=== PATIENT | female | born 1995 | race African-American/Black ===

== ENCOUNTER 2016-08-12 16:50 | Emergency (ER) | payer MEDICAID ==
[2016-08-12 18:18] LABS: ABSOLUTE LYMPHOCYTES (AUTO) 0.9 10^3/uL (0.5-4.7); ABSOLUTE MONOCYTES (AUTO) 0.7 10^3/uL (0.1-1.4); ABSOLUTE NEUT (AUTO) 3.2 10^3/uL (1.7-8.2); BASOPHILS % (AUTO) 0.6 % (0-2); EOSINOPHILS % (AUTO) 0.3 % (0-6); HEMATOCRIT 34.5 % (36.0-47.0); HEMOGLOBIN 11.1 g/dL (12.0-15.5); HGB HCT DIFFERENCE -1.2; MEAN CORPUSCULAR HEMOGLOBIN 25.3 pg (27.0-33.4); MEAN CORPUSCULAR HGB CONC 32.1 g/dL (32.0-36.0); MEAN CORPUSCULAR VOLUME 79 fl (80-97); MONOCYTES % (AUTO) 14.7 % (3-13); RED BLOOD COUNT 4.38 10^6/uL (3.72-5.28); RED CELL DISTRIBUTION WIDTH 14.3 % (11.5-14.0); SEGMENTED NEUTROPHILS % (AUTO) 65.4 % (42-78)
[2016-08-12 18:39] LABS: ALANINE AMINOTRANSFERASE 21 U/L (9-52); ALBUMIN 3.9 g/dL (3.5-5.0); ALKALINE PHOSPHATASE 111 U/L (38-126); ANION GAP 12 (5-19); ASPARTATE AMINO TRANSFERASE 18 U/L (14-36); BILIRUBIN,DIRECT 0.2 mg/dL (0.0-0.4); BILIRUBIN,TOTAL 0.8 mg/dL (0.2-1.3); BLOOD UREA NITROGEN 4 mg/dL (7-20); CALCIUM 9.5 mg/dL (8.4-10.2); CARBON DIOXIDE 23 mmol/L (22-30); CHLORIDE 105 mmol/L (98-107); CREATININE RESULT 0.62 mg/dL (0.52-1.25); GLUCOSE 100 mg/dL (75-110); POTASSIUM 4.1 mmol/L (3.6-5.0); SODIUM 140.4 mmol/L (137-145); TOTAL PROTEIN 7.5 g/dL (6.3-8.2)
[2016-08-12 18:40] LABS: ALCOHOL < 10 mg/dL (NONE DETECTED)
[2016-08-12 18:56] LABS: APPEARANCE,URINE SLIGHTLY-CLOUDY; BILIRUBIN,URINE NEGATIVE (NEGATIVE); GLUCOSE, URINE NEGATIVE (NEGATIVE); KETONES,URINE NEGATIVE (NEGATIVE); LEUKOCYTE ESTERASE,URINE TRACE (NEGATIVE); NITRITE,URINE NEGATIVE (NEGATIVE); PROTEIN,URINE 100 mg/dL (NEGATIVE); URINE SPECIFIC GRAVITY 1.016; UROBILINOGEN,URINE NEGATIVE mg/dL (<2.0)
--- NOTE | 2016-08-12 18:57 | ER Document Report ---
ED Seizure - General Chief Complaint: Seizure Stated Complaint: SEIZURES Time seen by provider: 18:55 Mode of Arrival: Medic Information source: Patient Notes: This is a 21-year-old female that is brought to the ER by EMS after 2 seizures at home. The patient states she was listening to music and "fell out". The patient states the next thing she knew EMS was waking her up at the scene. Patient does state she bit her tongue. Patient denies any urinary incontinence. Patient denies any confusion. EMS reports that the patient was alert and oriented 3. Patient has had 2 EEGs in the past which were normal. Brain MRI and 03/04 was normal. Past medical history: ADHD, bipolar affective disorder, "seizures". Medicines: Adderall and Latuda No known drug allergies - HPI Patient complains to provider of: History of seizures Quality of pain: No pain Severity: None Pain Level: Denies Continued on arrival to ED: No Can details of seizure be obtained/verified: No Episode witnessed (by whom): No Current seizure medications: No: Carbamazepine, Gabatin, Keppra, Lamictal, Phenytoin, Phenobarbital, Trileptal, Valproic acid, Vimpat, Other Preceding symptoms/context: denies: Recent illness/fever, Recent alcohol intake , Recent drug use, Sleep deprivation, Missed dose of meds, Changed meds or dosage, Somnolence History of: denies: Brain tumor or mets, CVA, Hydrocephalus, Migraines, TBI, V/ P shunt, Other Character of seizure: Complete loss/conscious Post-ictal symptoms: None Injuries: Bit tongue Treatment [employer]ER: No: Advanced airway, Ativan, Valium, Other Associated Symptoms: None - Related Data Allergies/Adverse Reactions: No Known Allergies Allergy (Verified 08/12/16 17:01) Past Medical History - General Information source: Patient - Social History Smoking Status: Never Smoker Cigarette use (# per day): No Chew tobacco use (# tins/day): No Frequency of alcohol use: None Drug Abuse: None Family History: Reviewed & Not Pertinent - Past Medical History Cardiac Medical History: Reports: None Pulmonary Medical History: Reports: None EENT Medical History: Reports: None Neurological Medical History: Reports: Hx Seizures Endocrine Medical History: Reports: None Renal/ Medical History: Reports: None. Denies: Hx Peritoneal Dialysis Malignancy Medical History: Reports: None GI Medical History: Reports: None Musculoskeltal Medical History: Reports None Psychiatric Medical History: Reports: Hx Attention Deficit Hyperactivity Disorder, Hx Bipolar Disorder Traumatic Medical History: Reports: None Infectious Medical History: Reports: None Surgical Hx: Negative - Immunizations Immunizations up to date: Yes Hx Diphtheria, Pertussis, Tetanus Vaccination: Yes Review of Systems - Review of Systems Constitutional: denies: Chills, Fever EENT: No symptoms reported Cardiovascular: No symptoms reported Respiratory: No symptoms reported Gastrointestinal: No symptoms reported Genitourinary: No symptoms reported Female Genitourinary: No symptoms reported Musculoskeletal: No symptoms reported Skin: No symptoms reported Hematologic/Lymphatic: No symptoms reported Neurological/Psychological: See HPI Physical Exam - Vital signs Vitals: Temp Pulse Resp BP Pulse Ox 99.1 F 119 H 16 141/77 H 98 08/12/16 16:58 08/12/16 16:58 08/12/16 16:58 08/12/16 16:58 08/12/16 16:58 Notes: Physical exam: GENERAL: 21-year-old female, alert and oriented 3, no acute distress HEAD: Atraumatic, normocephalic. EYES: Pupils equal round and reactive to light, extraocular movements intact, sclera anicteric, conjunctiva are normal. ENT: TMs normal, nares patent, superficial tongue bites on the left side of the tongue. Oropharynx clear without exudates. Moist mucous membranes. NECK: Normal range of motion, supple without lymphadenopathy or JVD. LUNGS: Breath sounds clear to auscultation bilaterally and equal. No wheezes rales or rhonchi. HEART: Regular rate and rhythm without murmurs, rubs or gallops. ABDOMEN: Soft, normoactive bowel sounds. No tenderness to palpation. No guarding, no rebound. No masses appreciated. EXTREMITIES: Normal range of motion, no pitting or edema. No clubbing or cyanosis. NEUROLOGICAL: Cranial nerves II through XII grossly intact. Normal speech, motor 5 over 5, sensory grossly intact, cerebellar (finger to nose) good. PSYCH: Normal mood, normal affect. SKIN: Warm, Dry, normal turgor, no rashes or lesions noted. Course - Vital Signs Vital signs: Temp Pulse Resp BP Pulse Ox 98.5 F 104 H 16 140/95 H 98 08/12/16 19:41 08/12/16 22:30 08/12/16 22:30 08/12/16 22:30 08/12/16 22:30 - Laboratory Result Diagrams: 08/12/16 18:04 08/12/16 18:04 Laboratory results interpreted by me: 08/12/16 08/12/16 08/12/16 18:04 18:04 18:25 Hgb 11.1 L Hct 34.5 L MCV 79 L MCH 25.3 L RDW 14.3 H Monocytes % 14.7 H BUN 4 L Urine Protein 100 H Urine Blood SMALL H Ur Leukocyte Esterase TRACE H - EKG Interpretation by Me Rate: Normal Rhythm: NSR - EKG shows sinus tachycardia with a ventricular rate of 107. QTC is normal, QRS intervals is normal, no acute ST-T wave changes Discharge - Discharge Clinical Impression: seizure UTI (urinary tract infection) Qualifiers: Urinary tract infection type: acute cystitis Hematuria presence: without hematuria Qualified Code(s): N30.00 - Acute cystitis without hematuria Condition: Stable Disposition: HOME, SELF-CARE Instructions: Nitrofurantoin ([facility]) Additional Instructions: Note: Your labs look good. He may have a urine infection: Side did write for some antibiotics for the next few days. Recommendations: Continue current medicines. Take the antibiotics as prescribed Follow-up with your primary care doctor Return to the emergency room for any problems. Follow-up with Dr. Mejia tomorrow Give the neurologist: Return to the emergency room for any problems. Prescriptions: Nitrofurantoin Macrocrystal [Nitrofurantoin] 100 mg PO BID #6 capsule Referrals: OLI MEJIA DO [NO LOCAL MD] - Follow up in 3-5 days LUIS HOBBS MD [ACTIVE STAFF] - Follow up as needed (This is the number for the neurologist)
[2016-08-12 19:04] LABS: URINE BARBITURATES SCREEN NEGATIVE; URINE METHADONE SCREEN NEGATIVE; URINE OPIATES LOW NEGATIVE; URINE PHENCYCLIDINE SCREEN NEGATIVE
[2016-08-12 19:56] LABS: THYROID STIMULATING HORMONE 1.86 uIU/mL (0.47-4.68)
--- NOTE | 2016-08-12 21:40 | EKG REPORT ---
SEVERITY:- OTHERWISE NORMAL ECG - SINUS TACHYCARDIA BORDERLINE RIGHT AXIS DEVIATION : Confirmed by: Helena Cadena 12-Aug-2016 21:39:41
[2016-08-12] MEDS ORDERED: NITROFURANTOIN MONOHYD/M-CRYST 100 MG CAPSULE PO ONE (21:58)
[2016-08-12 22:53] VITALS: BP 140/95
== END 2016-08-12 22:35 | disposition home or self-care (01) ==
LOC: ER 16:50
DX: R56.9 Unspecified convulsions (principal); N30.00 Acute cystitis without hematuria
CPT/HCPCS: 93005; 99284; 36415; 84439; 80307 ×2; 83735; 84443; 84703; 85025; 80053; 81001; 93010; J3490; J8499

== ENCOUNTER 2016-09-09 19:45 | Emergency (ER) | payer MEDICAID ==
[2016-09-09] MEDS ORDERED: LEVETIRACETAM 1000 MG/NACL-ISO 100 ML IV ONE (20:54)
[2016-09-09 20:55] LABS: ABSOLUTE EOSINOPHILS # (AUTO) 0.1 10^3/uL (0.0-0.6); ABSOLUTE LYMPHOCYTES (AUTO) 1.9 10^3/uL (0.5-4.7); ABSOLUTE MONOCYTES (AUTO) 0.8 10^3/uL (0.1-1.4); ABSOLUTE NEUT (AUTO) 3.6 10^3/uL (1.7-8.2); BASOPHILS % (AUTO) 0.4 % (0-2); EOSINOPHILS % (AUTO) 0.9 % (0-6); HEMATOCRIT 33.3 % (36.0-47.0); HEMOGLOBIN 10.4 g/dL (12.0-15.5); HGB HCT DIFFERENCE -2.1; LYMPHOCYTES % (AUTO) 30.2 % (13-45); MEAN CORPUSCULAR HEMOGLOBIN 24.6 pg (27.0-33.4); MEAN CORPUSCULAR HGB CONC 31.4 g/dL (32.0-36.0); MEAN CORPUSCULAR VOLUME 78 fl (80-97); MONOCYTES % (AUTO) 12.1 % (3-13); RED BLOOD COUNT 4.24 10^6/uL (3.72-5.28); RED CELL DISTRIBUTION WIDTH 14.6 % (11.5-14.0); SEGMENTED NEUTROPHILS % (AUTO) 56.4 % (42-78); WHITE BLOOD COUNT 6.3 10^3/uL (4.0-10.5)
[2016-09-09] MEDS ORDERED: NORMAL SALINE 1000 ML 1,000 ML IV PRN (20:56)
--- NOTE | 2016-09-09 20:56 | ER Document Report ---
ED Seizure - General Chief Complaint: Seizure Stated Complaint: POSSIBLE SEIZURE Time Seen by Provider: 09/09/16 20:46 Mode of Arrival: Ambulatory Information source: Patient - HPI Patient complains to provider of: History of seizures Quality of pain: No pain Character of seizure: Complete loss/conscious, Generalized shaking Post-ictal symptoms: None Injuries: None Associated Symptoms: None Notes: Patient is a 21-year-old female with a history of seizures, who is not currently medicated, has not been seen by a neurologist recently, who presents to the emergency room via EMS after having a seizure, she states she was sitting down at the time and denies any pain or trauma from the seizure, at time of my evaluation she reports feeling 100% normal, she is agreeable to being medicated for seizures, states she is just not had time to follow-up with a neurologist for her seizures - Related Data Allergies/Adverse Reactions: No Known Allergies Allergy (Verified 08/12/16 17:01) Past Medical History - General Information source: Patient - Social History Smoking Status: Never Smoker Family History: Reviewed & Not Pertinent Neurological Medical History: Reports: Hx Seizures Renal/ Medical History: Denies: Hx Peritoneal Dialysis Psychiatric Medical History: Reports: Hx Attention Deficit Hyperactivity Disorder, Hx Bipolar Disorder - Immunizations Immunizations up to date: Yes Hx Diphtheria, Pertussis, Tetanus Vaccination: Yes Review of Systems - Review of Systems Constitutional: No symptoms reported EENT: No symptoms reported Cardiovascular: No symptoms reported Respiratory: No symptoms reported Gastrointestinal: No symptoms reported Genitourinary: No symptoms reported Female Genitourinary: No symptoms reported Musculoskeletal: No symptoms reported Skin: No symptoms reported Hematologic/Lymphatic: No symptoms reported Neurological/Psychological: Seizure -: Yes All other systems reviewed and negative Physical Exam - Vital signs Vitals: Resp Pulse Ox 23 H 100 09/09/16 20:13 09/09/16 20:13 Interpretation: Tachycardic - General General appearance: Appears well, Alert - HEENT Head: Normocephalic, Atraumatic Eyes: Normal Pupils: PERRL - Respiratory Respiratory status: No respiratory distress Chest status: Nontender Breath sounds: Normal Chest palpation: Normal - Cardiovascular Rhythm: Regular Heart sounds: Normal auscultation Murmur: No - Abdominal Inspection: Normal Distension: No distension Bowel sounds: Normal Tenderness: Nontender Organomegaly: No organomegaly - Back Back: Normal, Nontender - Extremities General upper extremity: Normal inspection, Nontender, Normal color, Normal ROM , Normal temperature General lower extremity: Normal inspection, Nontender, Normal color, Normal ROM , Normal temperature, Normal weight bearing. No: Felix's sign - Neurological Neuro grossly intact: Yes Cognition: Normal Orientation: AAOx4 [place] Coma Scale Eye Opening: Spontaneous [place] Coma Scale Verbal: Oriented [place] Coma Scale Motor: Obeys Commands [place] Coma Scale Total: 15 Speech: Normal Motor strength normal: LUE, RUE, LLE, RLE Sensory: Normal - Psychological Associated symptoms: Normal affect, Normal mood - Skin Skin Temperature: Warm Skin Moisture: Dry Skin Color: Normal Course - Re-evaluation Re-evalutation: 09/10/16 02:38 No seizure activity was observed while in the emergency room, patient had no complaints, lab studies were consistent with urinary tract infection and patient was started on antibiotics for this as well as antiseizure medication, she was provided with information for follow-up and advised to return if symptoms worsen, patient acknowledges understanding and agreement with this plan - Vital Signs Vital signs: Temp Pulse Resp BP Pulse Ox 98.8 F 112 H 25 H 132/83 H 100 09/09/16 20:16 09/09/16 20:16 09/09/16 23:00 09/09/16 21:01 09/09/16 23:00 - Laboratory Result Diagrams: 09/09/16 20:00 09/09/16 20:00 Laboratory results interpreted by me: 09/09/16 09/09/16 09/09/16 20:00 20:00 22:00 Hgb 10.4 L Hct 33.3 L MCV 78 L MCH 24.6 L MCHC 31.4 L RDW 14.6 H Carbon Dioxide 21 L BUN 2 L Glucose 112 H Urine Protein 100 H Urine Ketones TRACE H Urine Urobilinogen 2.0 H Ur Leukocyte Esterase MODERATE H Discharge - Discharge Clinical Impression: Seizure UTI (urinary tract infection) Qualifiers: Urinary tract infection type: site unspecified Hematuria presence: without hematuria Qualified Code(s): N39.0 - Urinary tract infection, site not specified Condition: Stable Disposition: HOME, SELF-CARE Instructions: Cephalexin ([facility]), Urinary Tract Infection ([facility]), Seizure, Known Epileptic ([facility]), Neurologist Additional Instructions: Follow up with your primary care provider and neurologist in one to 2 days. Return to the emergency room immediately if symptoms worsen or any additional concerns. Prescriptions: Cephalexin Monohydrate [Keflex 500 mg Capsule] 500 mg PO BID #20 capsule Levetiracetam [Keppra 500 mg Tablet] 500 mg PO Q12 #60 tablet
[2016-09-09 21:01] LABS: ALANINE AMINOTRANSFERASE 17 U/L (9-52); ALBUMIN 3.7 g/dL (3.5-5.0); ALKALINE PHOSPHATASE 79 U/L (38-126); ANION GAP 15 (5-19); ASPARTATE AMINO TRANSFERASE 18 U/L (14-36); BILIRUBIN,DIRECT 0.3 mg/dL (0.0-0.4); BILIRUBIN,TOTAL 0.7 mg/dL (0.2-1.3); BLOOD UREA NITROGEN 2 mg/dL (7-20); CALCIUM 9.2 mg/dL (8.4-10.2); CARBON DIOXIDE 21 mmol/L (22-30); CHLORIDE 106 mmol/L (98-107); GLUCOSE 112 mg/dL (75-110); MAGNESIUM 1.8 mg/dL (1.6-2.3); POTASSIUM 3.7 mmol/L (3.6-5.0)
[2016-09-09 21:03] LABS: ALCOHOL < 10 mg/dL (NONE DETECTED)
[2016-09-09 22:05] VITALS: BP 132/83
[2016-09-09 22:28] LABS: APPEARANCE,URINE SLIGHTLY-CLOUDY; BILIRUBIN,URINE NEGATIVE (NEGATIVE); GLUCOSE, URINE NEGATIVE (NEGATIVE); KETONES,URINE TRACE mg/dL (NEGATIVE); LEUKOCYTE ESTERASE,URINE MODERATE (NEGATIVE); NITRITE,URINE NEGATIVE (NEGATIVE); PROTEIN,URINE 100 mg/dL (NEGATIVE); URINE SPECIFIC GRAVITY 1.019
[2016-09-09 22:32] LABS: URINE BARBITURATES SCREEN NEGATIVE; URINE METHADONE SCREEN NEGATIVE; URINE OPIATES LOW NEGATIVE; URINE PHENCYCLIDINE SCREEN NEGATIVE
[2016-09-09] MEDS ORDERED: CEPHALEXIN 500 MG CAPSULE PO ONE (23:14)
== END 2016-09-09 23:55 | disposition home or self-care (01) ==
LOC: ER 19:45
DX: R56.9 Unspecified convulsions (principal); N39.0 Urinary tract infection, site not specified
CPT/HCPCS: 99284; 96361; 96365; 36415; 80307 ×2; 83735; 84703; 85025; 80053; 81001; J7030; J1953

== ENCOUNTER 2018-02-24 13:44 | Emergency (ER) | payer SELFPAY ==
[2018-02-24 14:16] LABS: ALANINE AMINOTRANSFERASE 8 U/L (9-52); ALKALINE PHOSPHATASE 99 U/L (38-126); ANION GAP 15 (5-19); ASPARTATE AMINO TRANSFERASE 28 U/L (14-36); BILIRUBIN,DIRECT 0.2 mg/dL (0.0-0.4); BILIRUBIN,TOTAL 0.6 mg/dL (0.2-1.3); BLOOD UREA NITROGEN 6 mg/dL (7-20); CALCIUM 9.5 mg/dL (8.4-10.2); CARBON DIOXIDE 21 mmol/L (22-30); CHLORIDE 107 mmol/L (98-107); GLUCOSE 104 mg/dL (75-110); POTASSIUM 3.9 mmol/L (3.6-5.0); SODIUM 143.2 mmol/L (137-145); TOTAL PROTEIN 7.9 g/dL (6.3-8.2)
[2018-02-24 14:18] LABS: ALCOHOL < 10 mg/dL (NONE DETECTED)
[2018-02-24 15:16] LABS: ABSOLUTE EOSINOPHILS # (AUTO) 0.1 10^3/uL (0.0-0.6); ABSOLUTE LYMPHOCYTES (AUTO) 1.9 10^3/uL (0.5-4.7); ABSOLUTE MONOCYTES (AUTO) 0.8 10^3/uL (0.1-1.4); ABSOLUTE NEUT (AUTO) 5.7 10^3/uL (1.7-8.2); BASOPHILS % (AUTO) 0.5 % (0-2); EOSINOPHILS % (AUTO) 0.8 % (0-6); HEMATOCRIT 34.8 % (36.0-47.0); HEMOGLOBIN 11.3 g/dL (12.0-15.5); LYMPHOCYTES % (AUTO) 22.3 % (13-45); MEAN CORPUSCULAR HEMOGLOBIN 26.6 pg (27.0-33.4); MEAN CORPUSCULAR HGB CONC 32.3 g/dL (32.0-36.0); MEAN CORPUSCULAR VOLUME 82 fl (80-97); MONOCYTES % (AUTO) 9.2 % (3-13); PLATELET COUNT 262 10^3/uL (150-450); RED BLOOD COUNT 4.23 10^6/uL (3.72-5.28); RED CELL DISTRIBUTION WIDTH 15.5 % (11.5-14.0); SEGMENTED NEUTROPHILS % (AUTO) 67.2 % (42-78); TOTAL CELLS COUNTED % (AUTO) 100 %; WHITE BLOOD COUNT 8.5 10^3/uL (4.0-10.5)
--- NOTE | 2018-02-24 15:16 | ER Document Report ---
ED General - General Mode of Arrival: Ambulatory Information source: Patient TRAVEL OUTSIDE OF THE [place] IN LAST 30 DAYS: No <LORRAINE LYNNE - Last Filed: 02/24/18 16:45> <REINALDO CARTAGENA - Last Filed: 02/24/18 18:21> - General Chief Complaint: Seizure Stated Complaint: POSSIBLE SEIZURE Time Seen by Provider: 02/24/18 14:48 Notes: Patient is a 22-year-old female with a history of epilepsy presents to the emergency department complaining of a seizure. Patient states that she had 3 [id number] seizures today and proceeded to call EMS. Patient states that normally she would have at most 2 seizures with her last seizure being in January. At bedside patient states that she is feels sleepy and weak. She also complains of bite guidry to the tongue and urine incontinence. Patient denies any chest pain, trouble breathing, nausea, vomiting, diarrhea or numbness or tingling sensations. Patient states that she used to be prescribed Keppra but has been unable to take her because her antiseizure medications due to not being able to afford them. She states that her last dose of Keppra was sometime in June. (LORRAINE LYNNE) - Related Data Allergies/Adverse Reactions: No Known Allergies Allergy (Verified 08/12/16 17:01) Past Medical History - General Information source: Patient - Social History Smoking Status: Current Every Day Smoker Chew tobacco use (# tins/day): No Frequency of alcohol use: None Drug Abuse: None Family History: Reviewed & Not Pertinent Patient has suicidal ideation: No Patient has homicidal ideation: No Neurological Medical History: Reports: Hx Seizures Psychiatric Medical History: Reports: Hx Attention Deficit Hyperactivity Disorder, Hx Bipolar Disorder - Immunizations Immunizations up to date: Yes Hx Diphtheria, Pertussis, Tetanus Vaccination: Yes <LORRAINE LYNNE - Last Filed: 02/24/18 16:45> Review of Systems - Review of Systems Constitutional: See HPI EENT: No symptoms reported Cardiovascular: No symptoms reported Respiratory: No symptoms reported Gastrointestinal: No symptoms reported Genitourinary: No symptoms reported Female Genitourinary: No symptoms reported Musculoskeletal: No symptoms reported Skin: No symptoms reported Hematologic/Lymphatic: No symptoms reported Neurological/Psychological: See HPI, Seizure -: Yes All other systems reviewed and negative <LORRAINE LYNNE - Last Filed: 02/24/18 16:45> Physical Exam <LORRAINE LYNNE - Last Filed: 02/24/18 16:45> <REINALDO CARTAGENA - Last Filed: 02/24/18 18:21> - Vital signs Vitals: Resp 35 H 02/24/18 13:50 - Notes Notes: GENERAL: Alert, interacts well. No acute distress. HEAD: Normocephalic, atraumatic. EYES: Pupils equal, round, and reactive to light. Extraocular movements intact. ENT: Oral mucosa moist, tongue midline. Abrasions to the right side of the tongue consistent with bite guidry. NECK: Full range of motion. Supple. Trachea midline. LUNGS: Clear to auscultation bilaterally, no wheezes, rales, or rhonchi. No respiratory distress. HEART: Regular rate and rhythm. No murmurs, gallops, or rubs. ABDOMEN: Soft, non-tender. Non-distended. Bowel sounds present in all 4 quadrants. EXTREMITIES: Moves all 4 extremities spontaneously. NEUROLOGICAL: Alert and oriented x3. Normal speech. Cranial nerves II through XII grossly intact. Biceps and patellar DTRs 2+ bilaterally. PSYCH: Normal affect, normal mood. SKIN: Warm, dry, normal turgor. No rashes or lesions noted. (LORRAINE LYNNE) Course - Laboratory Result Diagrams: 02/24/18 13:20 02/24/18 13:20 <LORRAINE LYNNE - Last Filed: 02/24/18 16:45> - Laboratory Result Diagrams: 02/24/18 13:20 02/24/18 13:20 <REINALDO CARTAGENA - Last Filed: 02/24/18 18:21> - Re-evaluation Re-evalutation: 02/24/18 17:02 CBC shows mild anemia with a hemoglobin 11.3, CMP decreased CO2 at 21, hCG is negative, urinalysis shows blood and ketones but she is on her period, urine drug screen shows marijuana but nothing else. Alfredo Ocampo the reservations manager did speak with the patient and gave her an application for the [facility]. I will write her a one-month supply of Keppra and she has been given a 1 g dose here. Patient will be discharged home and referred to Dr. Hobbs. No further investigation is necessary as she is neurologically intact and has a known history of seizures and has not taken any antiepileptics since June. ( REINALDO CARTAGENA) - Vital Signs Vital signs: Temp Pulse Resp BP Pulse Ox 98.4 F 26 H 128/59 H 95 02/24/18 13:59 02/24/18 17:11 02/24/18 17:11 02/24/18 17:11 - Laboratory Laboratory results interpreted by me: 02/24/18 02/24/18 02/24/18 13:20 13:20 15:43 Hgb 11.3 L Hct 34.8 L MCH 26.6 L RDW 15.5 H Carbon Dioxide 21 L BUN 6 L ALT 8 L Urine Protein 100 H Urine Ketones TRACE H Urine Blood LARGE H Urine Urobilinogen 4.0 H Ur Leukocyte Esterase TRACE H Discharge <LORRAINE LYNNE - Last Filed: 02/24/18 16:45> <REINALDO CARTAGENA - Last Filed: 02/24/18 18:21> - Discharge Clinical Impression: Seizure, Noncompliance with medication regimen Condition: Stable Disposition: HOME, SELF-CARE Additional Instructions: You will keep having seizures if you are not taking your seizure medications. I have written you a prescription for your Keppra. Please try to get this filled and take it as directed. We have given you an application for the [facility], this is a low cost clinic associated with the hospital. Please fill out this application to see if you qualify it. You may not drive, swim or take a bath without being supervised until you are cleared by a neurologist. Prescriptions: Levetiracetam [Keppra 500 mg Tablet] 500 mg PO Q12 #60 tablet Referrals: LUIS HOBBS MD [NO LOCAL MD] - Follow up as needed Scribe Attestation: 02/24/18 18:21 I personally performed the services described in the documentation, reviewed and edited the documentation which was dictated to the scribe in my presence, and it accurately records my words and actions. (REINALDO CARTAGENA) Scribe Documentation - Scribe Written by Scribe:: Cr Ashley, 02/24/2018 15:46 acting as scribe for DrJs:: Kristian <LORRAINE LYNNE - Last Filed: 02/24/18 16:45>
[2018-02-24] MEDS ORDERED: LEVETIRACETAM 1000 MG/NACL-ISO 1,000 MG/100 ML RTUPB IV ONE (15:25)
[2018-02-24] MEDS ORDERED: NORMAL SALINE 1000 ML 1,000 ML IV ONE (16:02)
[2018-02-24 16:08] LABS: APPEARANCE,URINE SLIGHTLY-CLOUDY; BILIRUBIN,URINE NEGATIVE (NEGATIVE); COLOR,URINE YELLOW; GLUCOSE, URINE NEGATIVE (NEGATIVE); KETONES,URINE TRACE mg/dL (NEGATIVE); LEUKOCYTE ESTERASE,URINE TRACE (NEGATIVE); NITRITE,URINE NEGATIVE (NEGATIVE); PROTEIN,URINE 100 mg/dL (NEGATIVE)
[2018-02-24 16:18] LABS: URINE AMPHETAMINES SCREEN NEGATIVE; URINE BARBITURATES SCREEN NEGATIVE; URINE BENZODIAZEPINES SCREEN NEGATIVE; URINE COCAINE SCREEN NEGATIVE; URINE MARIJUANA (THC) SCREEN UNCONFIRMED POSITIVE; URINE METHADONE SCREEN NEGATIVE; URINE PHENCYCLIDINE SCREEN NEGATIVE
[2018-02-24 17:44] VITALS: BP 128/59
--- NOTE | 2018-02-24 18:11 | EKG REPORT ---
SEVERITY:- NORMAL ECG - SINUS RHYTHM : Confirmed by: Edwardo Boudreaux MD 24-Feb-2018 18:11:18
== END 2018-02-24 17:30 | disposition home or self-care (01) ==
LOC: ER 13:44
DX: R56.9 Unspecified convulsions (principal); R53.1 Weakness; Z91.14 Patient's other noncompliance with medication regimen; Z79.899 Other long term (current) drug therapy; F17.200 Nicotine dependence, unspecified, uncomplicated
CPT/HCPCS: 93005; 99284; 96361; 96374; 36415; 82962; 80307 ×2; 83735; 84703; 85025; 80053; 81001; 93010; J7030; J1953

== ENCOUNTER 2018-05-17 22:44 | Emergency (ER) | payer SELFPAY ==
[2018-05-17] MEDS ORDERED: LEVETIRACETAM 1000 MG/NACL-ISO 1,000 MG/100 ML RTUPB IV ONE (23:28)
--- NOTE | 2018-05-17 23:33 | ER Document Report ---
ED General - General Chief Complaint: Seizure Stated Complaint: POSSIBLE SEIZURE Time Seen by Provider: 05/17/18 23:23 Notes: Patient is a 22-year-old female who presents with complaint of a seizure. She apparently possibly had 2 seizures at home today. Paramedics were called. No medications given in route. She currently is awake and alert and says she feels well and has no concerns or complaints. Patient does have a history of epilepsy . She supposed be on Keppra. She was last seen here in February. At that time she was seen by social work and given an appointment to the [facility]. She is also given a prescription for a month supply of Keppra. She says she never filled the prescription. She prefers to not remember if she ever followed up with [facility] to me in clinic and then later in our conversation said that she did remember going to there. She says that she think she has an upcoming appointment with them as well but is unsure. Patient denies any recent fevers. She denies any pain. She denies any recent changes in her health. She has no other complaints at this time. TRAVEL OUTSIDE OF THE [place] IN LAST 30 DAYS: No - Related Data Allergies/Adverse Reactions: No Known Allergies Allergy (Verified 08/12/16 17:01) Past Medical History - Social History Smoking Status: Current Some Day Smoker Chew tobacco use (# tins/day): No Frequency of alcohol use: None Drug Abuse: None Family History: Reviewed & Not Pertinent Patient has suicidal ideation: No Patient has homicidal ideation: No Neurological Medical History: Reports: Hx Seizures Renal/ Medical History: Denies: Hx Peritoneal Dialysis Psychiatric Medical History: Reports: Hx Attention Deficit Hyperactivity Disorder, Hx Bipolar Disorder - Immunizations Immunizations up to date: Yes Hx Diphtheria, Pertussis, Tetanus Vaccination: Yes Review of Systems - Review of Systems Notes: My Normal Review Basic REVIEW OF SYSTEMS: CONSTITUTIONAL : Denies fever, chills, or sweats. Denies recent illness. EENT: Denies eye, ear, throat, or mouth pain or symptoms. Denies nasal or sinus congestion. RESPIRATORY: Denies cough, cold, or chest congestion. Denies shortness of breath, difficulty breathing, or wheezing. GASTROINTESTINAL: Denies abdominal pain. Denies nausea, vomiting, or diarrhea. GENITOURINARY: Denies difficulty urinating, painful urination, burning, frequency, or blood in urine. FEMALE GENITOURINARY: Denies vaginal bleeding, abnormal or irregular periods. MUSCULOSKELETAL: Denies neck or back pain or joint pain or swelling. SKIN: Denies rash or skin lesions. NEUROLOGICAL: Had a seizure. Denies headache. Denies weakness or paralysis or loss of use of either side. Denies problems with gait or speech. Denies sensory or motor loss. ALL OTHER SYSTEMS REVIEWED AND NEGATIVE. Physical Exam - Vital signs Vitals: Temp Pulse Resp BP Pulse Ox 98.5 F 107 H 32 H 125/85 100 05/17/18 22:53 05/17/18 22:53 05/17/18 22:53 05/17/18 22:53 05/17/18 22:53 - Notes Notes: General Appearance: Well nourished, alert, cooperative, no acute distress, no obvious discomfort. Well-appearing. Vitals: reviewed, See vital signs table. Head: no swelling or tenderness to the head Eyes: PERRL, EOMI, Conjuctiva clear Mouth: Very small area of tongue biting along the right side of her tongue. No active bleeding. Throat: No tonsillar inflammation, No airway obstruction, No lymphadenopathy Neck: Supple, no neck tenderness, No thyromegaly Lungs: No wheezing, No rales, No rhonci, No accessory muscle use, good air exchange bilaterally. Heart: Normal rate, Regular rythm, No murmur, no rub Abdomen: Normal BS, soft, No rigidity, No abdominal tenderness, No guarding, no rebound, no abdominal masses, no organomegaly Extremities: strength 5/5 in all extremities, good pulses in all extremities, no swelling or tenderness in the extremities, no edema. Skin: warm, dry, appropriate color, no rash Neuro: speech clear, oriented x 3, normal affect, responds appropriately to questions. Cranial nerves II through XII are intact. Distal sensation intact. Patient moves all extremities without difficulty. No focal neurologic deficits on exam. Course - Re-evaluation Re-evalutation: 05/18/18 00:35 On reevaluation patient just received her Keppra. She is sleeping comfortably. Will monitor for a bit longer to make sure she does not have any further seizure activity. 05/18/18 02:12 Has continued to do well without any seizures. She is easily arousable and answers questions. I informed her that according to good Rx website [facility] has Her a month supply for $9. I informed her that she needs to get her prescription filled and start taking her medications. I did not obtain blood work as patient has not had any fevers or infections and has had no other symptoms to cause concern for other etiology behind her seizures other than her not taking her medication. Patient looks well and will be discharged home. She denies any injury or pain from the seizure. Dictation of this chart was performed using voice recognition software; therefore, there may be some unintended grammatical errors. - Vital Signs Vital signs: Temp Pulse Resp BP Pulse Ox 98.5 F 107 H 32 H 125/85 100 05/17/18 22:53 05/17/18 22:53 05/17/18 22:53 05/17/18 22:53 05/17/18 22:53 Discharge - Discharge Clinical Impression: Seizure Condition: Good Additional Instructions: Seizure, Known Epileptic You have had a seizure. Seizures may "break through" in an epileptic due to stress of infection or injury, a change in blood chemistry, or drug and alcohol use. Another common cause is failure to take medication as prescribed. Your doctor has evaluated your situation for the likely cause of this seizure. It is important that you follow his advice concerning any medication changes and follow-up care. Further testing of anti-seizure medication levels in your blood may be necessary. 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 This seizure must be reported to the catering truck driver's license bureau. Call the doctor or return if seizures recur, or if new or unusual symptoms arise -- such as severe headache, confusion, excessive sleepiness, local weakness or numbness, neck stiffness, or fever. You must take your medication. If you do not take your Keppra you will have seizures again. Please return to the ER if you have recurrent seizures or feel unwell. [facility] the [employer] website. Prescriptions: Levetiracetam [Keppra 500 mg Tablet] 500 mg PO Q12 #60 tablet
[2018-05-18 03:07] VITALS: BP 136/80
--- NOTE | 2018-05-18 07:31 | EKG REPORT ---
SEVERITY:- OTHERWISE NORMAL ECG - SINUS TACHYCARDIA : Confirmed by: Lauren Del Rosario MD 18-May-2018 07:29:54
== END 2018-05-18 03:28 | disposition home or self-care (01) ==
LOC: ER 22:44
DX: R56.9 Unspecified convulsions (principal); Z79.899 Other long term (current) drug therapy; F17.200 Nicotine dependence, unspecified, uncomplicated
CPT/HCPCS: 93005; 99284; 96365; 36415; 84703; 93010; J1953

== ENCOUNTER 2018-06-15 14:14 | Emergency (ER) | payer SELFPAY ==
[2018-06-15] MEDS ORDERED: LIDOCAINE 2% VISCOUS SOLN 20 ML UDCUP PO ONE (16:10)
--- NOTE | 2018-06-15 16:17 | ER Document Report ---
ED ENT - General Chief Complaint: Ear Pain Stated Complaint: EAR ACHE Time Seen by Provider: 06/15/18 15:59 Primary Care Provider: JEANNE BASSETT DO [ASSOCIATE] - Follow up as needed Mode of Arrival: Ambulatory Information source: Patient Notes: 23-year-old female presents to ED for complaint of left ear pain since morning. She denies any discharge or injuries to the area. She states she has not taken any Tylenol or Motrin or any other medications before coming to the emergency room. Patient is alert oriented respirations regular and unlabored speaking in full sentences. TRAVEL OUTSIDE OF THE [place] IN LAST 30 DAYS: No - HPI Patient complains to provider of: Ear problem Onset: This morning Onset/Duration: Gradual Quality of pain: Achy, Sharp Severity: Severe Pain Level: 5 Location of pain: Ears Associated symptoms: Ear pain Similar symptoms previously: Yes Recently seen / treated by doctor: No - Related Data Allergies/Adverse Reactions: No Known Allergies Allergy (Verified 06/15/18 14:19) Past Medical History - General Information source: Patient - Social History Smoking Status: Current Every Day Smoker Cigarette use (# per day): Yes - 1 black and mild a day Chew tobacco use (# tins/day): No Smoking Education Provided: Yes - 4 minutes Frequency of alcohol use: None Drug Abuse: None Lives with: Spouse/Significant other Family History: Reviewed & Not Pertinent Patient has suicidal ideation: No Patient has homicidal ideation: No - Past Medical History Cardiac Medical History: Reports: None Pulmonary Medical History: Reports: None EENT Medical History: Reports: None Neurological Medical History: Reports: Hx Seizures Endocrine Medical History: Reports: None Renal/ Medical History: Reports: None Malignancy Medical History: Reports: None GI Medical History: Reports: None Musculoskeletal Medical History: Reports None Skin Medical History: Reports None Psychiatric Medical History: Reports: Hx Attention Deficit Hyperactivity Disorder, Hx Bipolar Disorder Traumatic Medical History: Reports: None Infectious Medical History: Reports: None Surgical Hx: Negative Past Surgical History: Reports: None - Immunizations Immunizations up to date: Yes Hx Diphtheria, Pertussis, Tetanus Vaccination: Yes Review of Systems - Review of Systems Constitutional: No symptoms reported EENT: Ear pain Cardiovascular: No symptoms reported Respiratory: No symptoms reported Gastrointestinal: No symptoms reported Genitourinary: No symptoms reported Female Genitourinary: No symptoms reported Musculoskeletal: No symptoms reported Skin: No symptoms reported Hematologic/Lymphatic: No symptoms reported Neurological/Psychological: No symptoms reported Physical Exam - Vital signs Vitals: Temp Pulse Resp BP Pulse Ox 99.0 F 74 16 141/85 H 100 06/15/18 14:21 06/15/18 14:21 06/15/18 14:21 06/15/18 14:21 06/15/18 14:21 Interpretation: Normal - General General appearance: Appears well, Alert - HEENT Head: Normocephalic, Atraumatic Eyes: Normal Pupils: PERRL Ears: Normal External canal: Normal Tympanic membrane: Other - Patient has multiple scratches to the ear canal and irritation to the tympanic membrane due to patient states she cleans her ears daily with Q-tips. Nasal: Normal Mouth/Lips: Normal Mucous membranes: Normal Pharynx: Normal Neck: Normal - Respiratory Respiratory status: No respiratory distress Chest status: Nontender Breath sounds: Normal Chest palpation: Normal - Cardiovascular Rhythm: Regular Heart sounds: Normal auscultation Murmur: No - Abdominal Inspection: Normal Distension: No distension Bowel sounds: Normal Tenderness: Nontender Organomegaly: No organomegaly - Back Back: Normal, Nontender - Extremities General upper extremity: Normal inspection, Nontender, Normal color, Normal ROM, Normal temperature General lower extremity: Normal inspection, Nontender, Normal color, Normal ROM, Normal temperature, Normal weight bearing. No: Felix's sign - Neurological Neuro grossly intact: Yes Cognition: Normal Orientation: AAOx4 Damian Coma Scale Eye Opening: Spontaneous [place] Coma Scale Verbal: Oriented [place] Coma Scale Motor: Obeys Commands [place] Coma Scale Total: 15 Speech: Normal Motor strength normal: LUE, RUE, LLE, RLE Sensory: Normal - Psychological Associated symptoms: Normal affect, Normal mood - Skin Skin Temperature: Warm Skin Moisture: Dry Skin Color: Normal Course - Re-evaluation Re-evalutation: 06/15/18 23:38 Patient was given a syringe with viscous lidocaine that she can instill a cc in each ear every 4-6 hours as needed for pain. Patient was instructed that she needed to only use the medication when she was actually in pain. Patient was instructed not to use Q-tips on her ear to clean her ear. Patient was instructed to use [id number] ear cleaning kits or peroxide and water or go to the ENT or primary care to get the ears pain but do not put Q-tips in her ears scratching her ear. Patient verbalized understanding and agreement with treatment plan before she was discharged. - Vital Signs Vital signs: Temp Pulse Resp BP Pulse Ox 97.8 F 80 22 H 149/84 H 100 06/15/18 16:35 06/15/18 16:35 06/15/18 16:35 06/15/18 16:35 06/15/18 16:35 Discharge - Discharge Clinical Impression: Otalgia of both ears Condition: Stable Disposition: HOME, SELF-CARE Instructions: Family Physicians / Practices Additional Instructions: You were seen today for pain to both ears. You have been using Q-tips in your ear and have injured both ears with the Q-tips. I have ordered lidocaine jelly that you can put 1 cc in each ear every 4-6 hours as needed for pain other than that use Tylenol or Motrin. There is no infection noted at this time you do not need antibiotics at this time. FOLLOW-UP CARE: If you have been referred to a physician for follow-up care, call the ysicians office for an appointment as you were instructed or within the next two days. If you experience worsening or a significant change in your symptoms, notify the physician immediately or return to the Emergency Department at any time for re-evaluation. Forms: Elevated Blood Pressure, Smoking Cessation Education Referrals: JEANNE BASSETT DO [ASSOCIATE] - Follow up as needed
[2018-06-15 16:51] VITALS: BP 149/84
== END 2018-06-15 16:51 | disposition home or self-care (01) ==
LOC: ER 14:14
DX: H92.03 Otalgia, bilateral (principal); F17.210 Nicotine dependence, cigarettes, uncomplicated
CPT/HCPCS: 99406; 99282; J3490

== ENCOUNTER 2018-08-25 14:08 | Emergency (ER) | payer SELFPAY ==
--- NOTE | 2018-08-25 14:54 | ER Document Report ---
ED Medical Screen (RME) - General Chief Complaint: Seizure Stated Complaint: POSSIBLE SEIZURE Time Seen by Provider: 08/25/18 14:53 Mode of Arrival: Medic Information source: Patient Notes: Patient presents emergency department with complaints of spitting up blood this morning and tongue pain. Patient reports she had a seizure this morning does not remember biting her tongue. Also noted she was coughing up blood. Denies history of this. Denies other symptoms such as fever vomiting diarrhea. Reports the seizure lasted between 10 to 15 minutes. She is out of medication for her seizures. I have greeted and performed a rapid initial assessment of this patient. A comprehensive ED assessment and evaluation of the patient, analysis of test results and completion of the medical decision making process will be conducted by additional ED providers. Dictation of this chart was performed using voice recognition software; therefore, there may be some unintended grammatical errors. TRAVEL OUTSIDE OF THE [place] IN LAST 30 DAYS: No - Related Data Allergies/Adverse Reactions: No Known Allergies Allergy (Verified 08/25/18 14:52) Past Medical History Neurological Medical History: Reports: Hx Seizures Renal/ Medical History: Denies: Hx Peritoneal Dialysis Psychiatric Medical History: Reports: Hx Attention Deficit Hyperactivity Disorder, Hx Bipolar Disorder - Immunizations Immunizations up to date: Yes Hx Diphtheria, Pertussis, Tetanus Vaccination: Yes Physical Exam - Vital signs Vitals: Temp Pulse Resp BP Pulse Ox 98.2 F 86 16 146/91 H 99 08/25/18 14:24 08/25/18 14:24 08/25/18 14:24 08/25/18 14:24 08/25/18 14:24 Course - Vital Signs Vital signs: Temp Pulse Resp BP Pulse Ox 98.2 F 86 16 146/91 H 99 08/25/18 14:24 08/25/18 14:24 08/25/18 14:24 08/25/18 14:24 08/25/18 14:24
--- NOTE | 2018-08-25 15:38 | RADIOLOGY REPORT (SQ) ---
EXAM DESCRIPTION: CHEST 2 VIEWS COMPLETED DATE/TIME: 08/25/2018 3:24 pm REASON FOR STUDY: coughing up blood COMPARISON: None. EXAM PARAMETERS: NUMBER OF VIEWS: two views TECHNIQUE: Digital Frontal and Lateral radiographic views of the chest acquired. RADIATION DOSE: NA LIMITATIONS: The patient's arms obscures detail somewhat in the retrosternal space on the lateral im age. FINDINGS: LUNGS AND PLEURA: No opacities, masses or pneumothorax. No pleural effusion. MEDIASTINUM AND HILAR STRUCTURES: No masses or contour abnormalities. HEART AND VASCULAR STRUCTURES: Heart size is within the upper limits of normal. No evidence for chaitanya lure. BONES: Mild levoconvex scoliosis of the thoracic spine. HARDWARE: None in the chest. OTHER: No other significant finding. IMPRESSION: 1. NO ACUTE RADIOGRAPHIC FINDING IN THE CHEST. TECHNICAL DOCUMENTATION: JOB ID: [id number] [employer]- All Rights Reserved Reading location - IP/workstation name: [email or web address]
[2018-08-25 17:09] LABS: ABSOLUTE EOSINOPHILS # (AUTO) 0.1 10^3/uL (0.0-0.6); ABSOLUTE LYMPHOCYTES (AUTO) 1.5 10^3/uL (0.5-4.7); ABSOLUTE MONOCYTES (AUTO) 0.6 10^3/uL (0.1-1.4); ABSOLUTE NEUT (AUTO) 4.9 10^3/uL (1.7-8.2); BASOPHILS % (AUTO) 0.3 % (0-2); EOSINOPHILS % (AUTO) 1.2 % (0-6); HEMOGLOBIN 10.6 g/dL (12.0-15.5); LYMPHOCYTES % (AUTO) 21.6 % (13-45); MEAN CORPUSCULAR HEMOGLOBIN 25.3 pg (27.0-33.4); MEAN CORPUSCULAR VOLUME 82 fl (80-97); MONOCYTES % (AUTO) 8.1 % (3-13); PLATELET COUNT 219 10^3/uL (150-450); RED BLOOD COUNT 4.18 10^6/uL (3.72-5.28); RED CELL DISTRIBUTION WIDTH 15.2 % (11.5-14.0); SEGMENTED NEUTROPHILS % (AUTO) 68.8 % (42-78); TOTAL CELLS COUNTED % (AUTO) 100 %; WHITE BLOOD COUNT 7.1 10^3/uL (4.0-10.5)
[2018-08-25 17:28] LABS: ALANINE AMINOTRANSFERASE 25 U/L (9-52); ALBUMIN 3.8 g/dL (3.5-5.0); ALKALINE PHOSPHATASE 104 U/L (38-126); ANION GAP 9 (5-19); ASPARTATE AMINO TRANSFERASE 22 U/L (14-36); BILIRUBIN,DIRECT 0.2 mg/dL (0.0-0.4); BILIRUBIN,TOTAL 0.8 mg/dL (0.2-1.3); BLOOD UREA NITROGEN 5 mg/dL (7-20); CALCIUM 9.5 mg/dL (8.4-10.2); CARBON DIOXIDE 26 mmol/L (22-30); CHLORIDE 105 mmol/L (98-107); GLUCOSE 85 mg/dL (75-110); POTASSIUM 4.2 mmol/L (3.6-5.0); SODIUM 140.2 mmol/L (137-145); TOTAL PROTEIN 7.6 g/dL (6.3-8.2)
[2018-08-25 17:35] LABS: APPEARANCE,URINE CLEAR; BILIRUBIN,URINE NEGATIVE (NEGATIVE); COLOR,URINE YELLOW; GLUCOSE, URINE NEGATIVE (NEGATIVE); KETONES,URINE NEGATIVE (NEGATIVE); LEUKOCYTE ESTERASE,URINE NEGATIVE (NEGATIVE); NITRITE,URINE NEGATIVE (NEGATIVE); PROTEIN,URINE NEGATIVE (NEGATIVE); URINE SPECIFIC GRAVITY 1.019
[2018-08-25] MEDS ORDERED: LEVETIRACETAM INJ/PF 500 MG/5 ML SDV IV ONE (20:41)
--- NOTE | 2018-08-25 21:12 | ER Document Report ---
ED General - General Chief Complaint: Seizure Stated Complaint: POSSIBLE SEIZURE Time Seen by Provider: 08/25/18 14:53 Mode of Arrival: Medic TRAVEL OUTSIDE OF THE [place] IN LAST 30 DAYS: No - HPI Notes: Patient is a 23-year-old female presents emergency department for evaluation. She states she had a seizure this morning. She states is been having them about weekly for the last year. She had been well controlled on Keppra, but thought her Medicaid card was gone. Her boyfriend witnessed her have a seizure she believes was about 10 minutes this morning. She states since then she is having tongue pain and coughed up some blood. The blood was bright red. She denies any coughing up blood since then. No fevers or chills. No nausea or vomiting. She is unsure as to the type of seizures that she has. She states she has not seen neurology. Her family doctor wrote her Keppra. - Related Data Allergies/Adverse Reactions: No Known Allergies Allergy (Verified 08/25/18 14:52) Past Medical History - General Information source: Patient - Social History Smoking Status: Never Smoker Chew tobacco use (# tins/day): No Drug Abuse: None Family History: Reviewed & Not Pertinent Patient has suicidal ideation: No Patient has homicidal ideation: No Neurological Medical History: Reports: Hx Seizures Renal/ Medical History: Denies: Hx Peritoneal Dialysis Psychiatric Medical History: Reports: Hx Attention Deficit Hyperactivity Disorder, Hx Bipolar Disorder - Immunizations Immunizations up to date: Yes Hx Diphtheria, Pertussis, Tetanus Vaccination: Yes Review of Systems - Review of Systems Constitutional: No symptoms reported EENT: See HPI Cardiovascular: No symptoms reported Respiratory: See HPI Gastrointestinal: No symptoms reported Genitourinary: No symptoms reported Musculoskeletal: No symptoms reported Skin: No symptoms reported Neurological/Psychological: No symptoms reported Physical Exam - Vital signs Vitals: Temp Pulse Resp BP Pulse Ox 98.2 F 86 16 146/91 H 99 08/25/18 14:24 08/25/18 14:24 08/25/18 14:24 08/25/18 14:24 08/25/18 14:24 - Notes Notes: Vital signs reviewed, please refer to chart. Head is normocephalic, atraumatic. Pupils equal round, reactive to light. Tongue reveals no signs of bite trauma. No blood in the posterior pharynx. Uvula is midline. Neck is supple without meningismus. Heart is regular rate and rhythm. Lungs are clear to auscultation bilaterally. Abdomen is soft, nontender, normoactive bowel sounds throughout. Extremities without cyanosis, clubbing. Posterior calves are nontender. Peripheral pulses are equal. Skin is warm and dry. Patient is awake, alert, oriented x3. Cranial nerves II through V are grossly intact without focal neurological deficits. Strength was 5-5 bilateral lower extremities. Sensation is intact, reflexes symmetrical. Gait within normal limits. Course - Re-evaluation Re-evalutation: 08/25/18 21:11 Patient presents emergency department for evaluation after a seizure and coughing up blood. I do not see any overt signs of trauma to her tongue. She denies any melena or hematochezia. She is anemic, but this is actually stable. Chest x-ray is unremarkable. Laboratory investigations besides the anemia are unremarkable as well. The patient is to get back on her seizure medications. She is given IV Keppra here. I will restart her on the dose of Keppra that she had been taking in the past. The need for her to follow-up was stressed to the patient. She did not have any further hemoptysis after this morning. She is to follow-up with primary care this week, return the emergency department with worsening or new concerning symptoms. - Vital Signs Vital signs: Temp Pulse Resp BP Pulse Ox 98.3 F 86 16 146/91 H 99 08/25/18 20:50 08/25/18 14:24 08/25/18 14:24 08/25/18 14:24 08/25/18 14:24 - Laboratory Result Diagrams: 08/25/18 16:41 08/25/18 16:41 Laboratory results interpreted by me: 08/25/18 08/25/18 08/25/18 16:41 16:41 16:41 Hgb 10.6 L Hct 34.0 L MCH 25.3 L MCHC 31.0 L RDW 15.2 H BUN 5 L Creatinine 0.49 L Urine Blood SMALL H Urine Urobilinogen 2.0 H - Diagnostic Test Radiology reviewed: Reports reviewed Radiology results interpreted by me: 08/25/18 21:12 Chest X-Ray 08/25/18 14:54 IMPRESSION: 1. NO ACUTE RADIOGRAPHIC FINDING IN THE CHEST. Discharge - Discharge Clinical Impression: Seizure, Hemoptysis, Painful tongue Condition: Stable Disposition: HOME, SELF-CARE Instructions: Seizure, Known Epileptic ([facility]) Additional Instructions: Take your Keppra as directed. Follow-up with primary care this week. Return to the emergency department with worsening or new concerning symptoms of any sort.
[2018-08-25 21:34] VITALS: BP 139/87
== END 2018-08-25 21:34 | disposition home or self-care (01) ==
LOC: ER 14:08
DX: R56.9 Unspecified convulsions (principal); R04.2 Hemoptysis; K14.6 Glossodynia
CPT/HCPCS: 99284; 96374; 36415; 85025; 81025; 80053; 81001; 71046; J1953

== ENCOUNTER 2019-06-12 07:50 | Emergency (ER) | payer SELFPAY ==
[2019-06-12 08:12] VITALS: BP 148/71
[2019-06-12] MEDS ORDERED: LEVETIRACETAM 500 MG TABLET PO ONE (08:29)
--- NOTE | 2019-06-12 14:23 | ER Document Report ---
Entered by SUNG QUESADA SCRIBE 06/12/19 0809 Acting as scribe for:KRYSTIAN DASH MD ED General - General Chief Complaint: Weakness Stated Complaint: WEAKNESS Time Seen by Provider: 06/12/19 08:08 Mode of Arrival: Ambulatory Information source: Patient Notes: This 24-year-old female patient with history of epilepsy presents to the emergency department today with complaints of a seizure at around 2:00am this morning. Patient states that she feels generally weak now which is normal for her after a seizure. Patient's seizures were well controlled on Keppra but she has not been on this medication for "a year or two" due to not having a local medical doctor per patient. Family member at bedside states that they went to the [facility] a few weeks ago and picked up paperwork to fill out so that she can be seen there but they have not completed it yet. Pertinent PMHx/PSHx: Seizures, was well controlled with Keppra but she has not had this mediation in "a year or two" - additional PMHx/PSHx not pertinent to this visit as recorded. PCP: none, referred to [facility]. TRAVEL OUTSIDE OF THE [place] IN LAST 30 DAYS: No - Related Data Allergies/Adverse Reactions: No Known Allergies Allergy (Verified 08/25/18 14:52) Past Medical History - General Information source: Patient, [facility] Records - Social History Smoking Status: Current Every Day Smoker - "one black and mild every few days" Cigarette use (# per day): Yes - 1 Chew tobacco use (# tins/day): No Smoking Education Provided: No Frequency of alcohol use: None Drug Abuse: None Occupation: [employer] Lives with: Family Family History: Reviewed & Not Pertinent Neurological Medical History: Reports: Hx Seizures Psychiatric Medical History: Reports: Hx Attention Deficit Hyperactivity Disorder, Hx Bipolar Disorder Surgical Hx: Negative - Immunizations Immunizations up to date: Yes Hx Diphtheria, Pertussis, Tetanus Vaccination: Yes Review of Systems - Review of Systems Constitutional: No symptoms reported EENT: No symptoms reported Cardiovascular: No symptoms reported Respiratory: No symptoms reported Gastrointestinal: No symptoms reported Genitourinary: No symptoms reported Female Genitourinary: No symptoms reported Musculoskeletal: No symptoms reported Skin: No symptoms reported Hematologic/Lymphatic: No symptoms reported Neurological/Psychological: See HPI, Seizure -: Yes All other systems reviewed and negative Physical Exam - Vital signs Vitals: Temp Pulse Resp BP Pulse Ox 98.1 F 80 20 148/71 H 100 06/12/19 07:59 06/12/19 07:59 06/12/19 07:59 06/12/19 07:59 06/12/19 07:59 - Notes Notes: Physical Exam: General: Alert, appears well. HEENT: Normocephalic. Atraumatic. PERRL. Extraocular movements intact. Oropharynx clear. Evidence of tongue chewing to left lateral posterior tongue. Neck: Supple. Non-tender. Respiratory: No respiratory distress. Clear and equal breath sounds bilaterally. Cardiovascular: Regular rate and rhythm. Abdominal: Obese. Non-tender. No distension. Normal Bowel Sounds. Back: No gross abnormalities. Extremities: Moves all four extremities. Upper extremities: Normal inspection. Normal ROM. Lower extremities: Normal inspection. No edema. Normal ROM. Neurological: Normal cognition. AAOx4. Normal speech. Psychological: Normal affect. Normal Mood. Skin: Warm. Dry. Normal color. Course - Vital Signs Vital signs: Temp Pulse Resp BP Pulse Ox 98.1 F 80 20 148/71 H 100 06/12/19 07:59 06/12/19 07:59 06/12/19 07:59 06/12/19 07:59 06/12/19 07:59 Discharge - Discharge Clinical Impression: Seizure, Has run out of medications Condition: Stable Disposition: HOME, SELF-CARE Additional Instructions: Seizure, Known Epileptic You have had a seizure. Seizures may "break through" in an epileptic due to stress of infection or injury, a change in blood chemistry, or drug and alcohol use. Another common cause is failure to take medication as prescribed. Your doctor has evaluated your situation for the likely cause of this seizure. It is important that you follow his advice concerning any medication changes and follow-up care. Further testing of anti-seizure medication levels in your blood may be necessary. 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 This seizure must be reported to the experienced truck driver's license bureau. Call the doctor or return if seizures recur, or if new or unusual symptoms arise -- such as severe headache, confusion, excessive sleepiness, local weakness or numbness, neck stiffness, or fever. Take medications as prescribed. Get plenty of rest and drink plenty of fluids today. Follow-up with the [facility] for ongoing medical care. RETURN TO THE EMERGENCY ROOM IF ANY NEW OR WORSENING SYMPTOMS. Prescriptions: Levetiracetam [Keppra 500 mg Tablet] 500 mg PO Q12 #60 tablet Forms: Return to Work Scribe Attestation: 06/12/19 08:30 I personally performed the services described in the documentation, reviewed and edited the documentation which was dictated to the scribe in my presence, and it accurately records my words and actions. I personally performed the services described in the documentation, reviewed and edited the documentation which was dictated to the scribe in my presence, and it accurately records my words and actions.
== END 2019-06-12 08:52 | disposition home or self-care (01) ==
LOC: ER 07:50
DX: G40.909 Epilepsy, unspecified, not intractable, without status epilepticus (principal); F17.210 Nicotine dependence, cigarettes, uncomplicated
CPT/HCPCS: 99283

== ENCOUNTER 2019-06-22 11:58 | Emergency (ER) | payer SELFPAY ==
--- NOTE | 2019-06-22 12:13 | ER Document Report ---
ED Medical Screen (RME) - General Chief Complaint: Possible Overdose Stated Complaint: POSSIBLE OVERDOSE Time Seen by Provider: 06/22/19 12:07 Notes: 24-year-old female presents for overdose on Keppra 500 mg. Patient took it approximately 1 hour ago. Possibly took half her bottle prescription which had 60 pills in it. Patient states she is feeling short of breath. Patient states she did take these medications to attempt to hurt her self. Nontoxic, well- appearing. No tripoding. No accessory muscle use. I have greeted and performed a rapid initial assessment of this patient. A comprehensive ED assessment and evaluation of the patient, analysis of test results and completion of the medical decision making process with be conducted by additional ED providers. TRAVEL OUTSIDE OF THE [place] IN LAST 30 DAYS: No - Related Data Allergies/Adverse Reactions: No Known Allergies Allergy (Verified 08/25/18 14:52) Past Medical History Neurological Medical History: Reports: Hx Seizures Renal/ Medical History: Denies: Hx Peritoneal Dialysis Psychiatric Medical History: Reports: Hx Attention Deficit Hyperactivity Disorder, Hx Bipolar Disorder - Immunizations Immunizations up to date: Yes Hx Diphtheria, Pertussis, Tetanus Vaccination: Yes Course - Re-evaluation Re-evalutation: 06/22/19 12:12 Contacted poison control. Recommend EKG, 4 hour post ingestion tylenol level, ASA level, lytes. May start vomiting and having lethargy, bradycardia, resp distress, hypotension. Keep on monitor. Repeat EKG in 3-4 hours. Supportive care. Observe for 6 hours from ingestion then and reevaluate in 6 hours from ingestion for reassessment and possible longer observation period if symptomatic. If has a seizure, recommend benzos as first line of treatment. Phenobarbital is 2nd line if does not respond to benzo.
[2019-06-22 12:48] LABS: ABSOLUTE LYMPHOCYTES (AUTO) 1.4 10^3/uL (0.5-4.7); ABSOLUTE MONOCYTES (AUTO) 0.7 10^3/uL (0.1-1.4); ABSOLUTE NEUT (AUTO) 1.5 10^3/uL (1.7-8.2); BASOPHILS % (AUTO) 0.4 % (0-2); EOSINOPHILS % (AUTO) 0.7 % (0-6); HEMATOCRIT 34.1 % (36.0-47.0); HEMOGLOBIN 10.9 g/dL (12.0-15.5); LYMPHOCYTES % (AUTO) 37.9 % (13-45); MEAN CORPUSCULAR HEMOGLOBIN 25.9 pg (27.0-33.4); MEAN CORPUSCULAR HGB CONC 32.1 g/dL (32.0-36.0); MEAN CORPUSCULAR VOLUME 81 fl (80-97); MONOCYTES % (AUTO) 19.4 % (3-13); PLATELET COUNT 183 10^3/uL (150-450); RED BLOOD COUNT 4.22 10^6/uL (3.72-5.28); RED CELL DISTRIBUTION WIDTH 15.3 % (11.5-14.0); SEGMENTED NEUTROPHILS % (AUTO) 41.6 % (42-78); TOTAL CELLS COUNTED % (AUTO) 100 %; WHITE BLOOD COUNT 3.7 10^3/uL (4.0-10.5)
[2019-06-22 13:08] LABS: ALBUMIN 3.7 g/dL (3.5-5.0); ALKALINE PHOSPHATASE 104 U/L (38-126); ANION GAP 8 (5-19); ASPARTATE AMINO TRANSFERASE 24 U/L (14-36); BILIRUBIN,TOTAL 0.4 mg/dL (0.2-1.3); BLOOD UREA NITROGEN 5 mg/dL (7-20); CALCIUM 9.1 mg/dL (8.4-10.2); CARBON DIOXIDE 25 mmol/L (22-30); CHLORIDE 106 mmol/L (98-107); GLUCOSE 86 mg/dL (75-110); POTASSIUM 4.6 mmol/L (3.6-5.0); SALICYLATE 1.1 mg/dL (2.0-20.0); TOTAL PROTEIN 7.4 g/dL (6.3-8.2)
[2019-06-22 13:16] LABS: ALCOHOL < 10 mg/dL (NONE DETECTED)
--- NOTE | 2019-06-22 14:01 | PSYCHOLOGICAL NOTE ---
Psych Note - Psych Note Date seen by psych provider: 06/22/19 Time seen by psych provider: 13:50 Psych Note: Reason for Consult: reported intentional overdose Patient presented to [facility] ED with reported intentional overdose on iron pills and keppra. Patient's boyfriend brought her to the ED after he found her taking the pills. The patient reports she has never attempted to harm herself before but that she has been off her medications for about 2 years. She states she has diagnosis of bipolar and adhd but only took Adderall. Patient believed this medication was for both her adhd and bipolar and acted surprised when told Adderall would not be effective for bipolar and could actually increase symptoms. She disclosed she is an "over thinker" and that today she started to become depressed and wanted to . Patient is alert and orientated to person, place, time and circumstance. Patient's mood is euthymic with congruent affect and evidenced by smiling, laughing and engaging with clinician. Patient reports suicidal ideation with an intentional overdose. She denies homicidal ideation. Delusions are absent and behaviors congruent with an intact reality based presentation ie organized and linear thought process. Eye contact is well-maintained. Conversational speech is within normal rate, tone and prosody. Intellectual abilities appear to be within the average range. Attention and concentration are good. Insight, judgment, impulse control are poor. Impression\\plan:Patient is recommended for 24 hour petition for evaluation. She is not currently medically cleared and evaluation is ongoing. Patient reports she intentional overdosed on iron pills and keppra. She does snot disclosed trigger, only that she was over thinking and became depressed and wanted to . Patient just arrived and currently her mood is euythmic with congruent affect (she smiled, laughed and engaged with clinician); this is not typically congruent with depression and intentional overdose. Dr. Vieyra was consulted to care management of this patient; attending physicians in agreement with recommendations and disposition.
[2019-06-22 15:02] LABS: APPEARANCE,URINE CLEAR; BILIRUBIN,URINE NEGATIVE (NEGATIVE); GLUCOSE, URINE NEGATIVE (NEGATIVE); KETONES,URINE NEGATIVE (NEGATIVE); LEUKOCYTE ESTERASE,URINE TRACE (NEGATIVE); NITRITE,URINE NEGATIVE (NEGATIVE); PROTEIN,URINE 100 mg/dL (NEGATIVE); URINE SPECIFIC GRAVITY 1.008; UROBILINOGEN,URINE NEGATIVE mg/dL (<2.0)
[2019-06-22 15:04] LABS: COLOR,URINE RED
[2019-06-22 15:18] LABS: URINE AMPHETAMINES SCREEN NEGATIVE; URINE BARBITURATES SCREEN NEGATIVE; URINE BENZODIAZEPINES SCREEN NEGATIVE; URINE COCAINE SCREEN NEGATIVE; URINE MARIJUANA (THC) SCREEN UNCONFIRMED POSITIVE; URINE METHADONE SCREEN NEGATIVE; URINE PHENCYCLIDINE SCREEN NEGATIVE
--- NOTE | 2019-06-22 19:00 | EKG REPORT ---
SEVERITY:- OTHERWISE NORMAL ECG - SINUS ARRHYTHMIA, RATE [id number] : Confirmed by: Edwardo Boudreaux MD 22-Jun-2019 18:59:50
--- NOTE | 2019-06-22 19:00 | EKG REPORT ---
SEVERITY:- NORMAL ECG - SINUS RHYTHM : Confirmed by: Edwardo Boudreaux MD 22-Jun-2019 18:59:58
--- NOTE | 2019-06-22 19:27 | ER Document Report ---
ED General - General Chief Complaint: psych eval Stated Complaint: POSSIBLE OVERDOSE Time Seen by Provider: 06/22/19 12:07 Mode of Arrival: Ambulatory Information source: Patient TRAVEL OUTSIDE OF THE [place] IN LAST 30 DAYS: No - HPI Notes: Patient is brought in after taking a handful of Keppra. She states she only took Keppra pills. Boyfriend states that there also may have been some iron pills. Patient states she did this because she was depressed and wanted to kill herself. She denies any homicidal ideation. No hallucinations. Patient states she feels slightly short of breath. No pain. No significant vomiting but she does have some nausea. She states she is never tried to commit suicide before. Patient states she took these pills at approximate 11 AM. Currently patient shortness of breath is mild. It gets worse with exertion and better with rest. There is no known radiation of the symptom. It is constant. - Related Data Allergies/Adverse Reactions: No Known Allergies Allergy (Verified 06/22/19 12:24) Home Medications: Levetiracetam Past Medical History - General Information source: Patient - Social History Smoking Status: Current Some Day Smoker Frequency of alcohol use: None Drug Abuse: Marijuana Family History: Reviewed & Not Pertinent Patient has suicidal ideation: Yes Patient has homicidal ideation: No Neurological Medical History: Reports: Hx Seizures Renal/ Medical History: Denies: Hx Peritoneal Dialysis Psychiatric Medical History: Reports: Hx Attention Deficit Hyperactivity Disorder, Hx Bipolar Disorder - Immunizations Immunizations up to date: Yes Hx Diphtheria, Pertussis, Tetanus Vaccination: Yes Review of Systems - Review of Systems Constitutional: denies: Chills, Fever Cardiovascular: denies: Chest pain, Palpitations Respiratory: denies: Cough, Short of breath -: Yes All other systems reviewed and negative Physical Exam - Vital signs Vitals: Temp Pulse Resp BP Pulse Ox 98.1 F 53 L 14 151/98 H 100 06/22/19 12:23 06/22/19 12:23 06/22/19 12:23 06/22/19 12:23 06/22/19 12:23 Interpretation: Normal - General General appearance: Appears well, Alert - HEENT Head: Normocephalic, Atraumatic Eyes: Normal Pupils: PERRL - Respiratory Respiratory status: No respiratory distress Chest status: Nontender Breath sounds: Normal Chest palpation: Normal - Cardiovascular Rhythm: Regular Heart sounds: Normal auscultation Murmur: No - Abdominal Inspection: Normal Distension: No distension Bowel sounds: Normal Tenderness: Nontender Organomegaly: No organomegaly - Back Back: Normal, Nontender - Extremities General upper extremity: Normal inspection, Nontender, Normal color, Normal ROM, Normal temperature General lower extremity: Normal inspection, Nontender, Normal color, Normal ROM, Normal temperature, Normal weight bearing. No: Felix's sign - Neurological Neuro grossly intact: Yes Cognition: Normal Orientation: AAOx4 [place] Coma Scale Eye Opening: Spontaneous [place] Coma Scale Verbal: Oriented [place] Coma Scale Motor: Obeys Commands [place] Coma Scale Total: 15 Speech: Normal Motor strength normal: LUE, RUE, LLE, RLE Sensory: Normal - Psychological Associated symptoms: Normal affect, Normal mood - Skin Skin Temperature: Warm Skin Moisture: Dry Skin Color: Normal Course - Re-evaluation Re-evalutation: 06/22/19 19:28 Patient is at the 7-hour abram now and is asymptomatic. Labs are also unremarkable. Have discussed the patient with poison control who confirms the patient is medically clear. Patient is currently awaiting further psychiatric care at this time. She has been placed on IVC. - Vital Signs Vital signs: Temp Pulse Resp BP Pulse Ox 98.1 F 53 L 31 H 142/78 H 100 06/22/19 12:23 06/22/19 12:23 06/22/19 17:00 06/22/19 14:01 06/22/19 17:00 - Laboratory Result Diagrams: 06/22/19 12:20 06/22/19 12:20 Laboratory results interpreted by me: 06/22/19 06/22/19 06/22/19 12:20 12:20 14:30 WBC 3.7 L Hgb 10.9 L Hct 34.1 L MCH 25.9 L RDW 15.3 H [place] % (Auto) 19.4 H Absolute Neuts (auto) 1.5 L Seg Neutrophils % 41.6 L BUN 5 L Creatinine 0.45 L Urine Protein 100 H Urine Blood LARGE H Ur Leukocyte Esterase TRACE H Salicylates 1.1 L Acetaminophen 06/22/19 15:30 WBC Hgb Hct MCH RDW [place] % (Auto) Absolute Neuts (auto) Seg Neutrophils % BUN Creatinine Urine Protein Urine Blood Ur Leukocyte Esterase Salicylates Acetaminophen < 10 L - Diagnostic Test Radiology reviewed: Image reviewed, Reports reviewed - EKG Interpretation by Me EKG shows normal: Sinus rhythm Rate: Normal - 68 Rhythm: NSR [place]/QRS: No: Right axis deviation, Left axis deviation Discharge - Discharge Clinical Impression: Intentional overdose of drug in tablet form, Suicidal ideation Condition: Serious Disposition: PSYCH HOSP/UNIT
--- NOTE | 2019-06-23 01:56 | ER Document Report ---
Doctor's Note Notes: 06/23/19 01:56 Chart reviewed patient resting calmly 06/23/19 07:37 Patient slept well all night without incidents. No complaints.
[2019-06-23 09:46] LABS: ABSOLUTE LYMPHOCYTES (AUTO) 1.1 10^3/uL (0.5-4.7); ABSOLUTE MONOCYTES (AUTO) 0.5 10^3/uL (0.1-1.4); BASOPHILS % (AUTO) 0.3 % (0-2); EOSINOPHILS % (AUTO) 0.9 % (0-6); HEMATOCRIT 32.2 % (36.0-47.0); HEMOGLOBIN 10.6 g/dL (12.0-15.5); LYMPHOCYTES % (AUTO) 42.1 % (13-45); MEAN CORPUSCULAR HEMOGLOBIN 26.2 pg (27.0-33.4); MEAN CORPUSCULAR HGB CONC 32.7 g/dL (32.0-36.0); MEAN CORPUSCULAR VOLUME 80 fl (80-97); MONOCYTES % (AUTO) 18.4 % (3-13); PLATELET COUNT 191 10^3/uL (150-450); RED BLOOD COUNT 4.03 10^6/uL (3.72-5.28); RED CELL DISTRIBUTION WIDTH 15.2 % (11.5-14.0); SEGMENTED NEUTROPHILS % (AUTO) 38.3 % (42-78); TOTAL CELLS COUNTED % (AUTO) 100 %; WHITE BLOOD COUNT 2.7 10^3/uL (4.0-10.5)
[2019-06-23 12:00] VITALS: BP 129/82
--- NOTE | 2019-06-23 19:20 | PSYCHOLOGICAL NOTE ---
Psych Note - Psych Note Date seen by psych provider: 06/23/19 Time seen by psych provider: 07:35 Psych Note: Check in conducted with patient. Patient states she is "better." Patient states her concern is "over thinking." Patient reports taking a "full bottle of Keppra and a couple of iron pills." Clinician spoke with patient regarding her current labs not supporting an overdose. Patient acted surprised and stated she did take medications. Patient denies current suicidal ideation. Patient states she "doesn't think I'll do this again." Patient was unable to identify what has changed since suicide attempt. Clinician discussed with patient about being discharged and her stressors have not changed. Patient states she is unsure if mental health services will help. Patient reports little social support. Patient states her boyfriend is not a good source of support. Patient reported health diagnoses of ADHD and bipolar. Patient states she is only been prescribed Adderall for mental health. Clinician provided psychoeducation to patient regarding ADHD not being an appropriate medication to treat bipolar disorder. Patient presented as shocked. Clinician notes patient's mood is eurythmic with congruent affect. Patient is smiling and laughing while she engages with clinician. Clinician contacted patient's boyfriend ([phone]). Patient's boyfriend expressed a desire for patient to have the best life possible. He was agreeable to be responsible for medication management and administration, increased observation for signs of emotional distress, facilitating follow-up appointments with a mental health provider, assisting with re-filing for Medicaid, and removing access to other items in the home that can be used for suicidal purposes. Patient notes patient's demeanor was more elevated with boyfriend in the room. Clinician provided psychoeducation regarding the benefit of mental health services and medication management. Patient verbalized understanding and agreement that mental health services would be beneficial. Medication recommendations per [facility] contracted psychiatrist Dr. Jorge A MD are as follows: Add Depakote 500MG, twice a day Add Zyprexa 2.5MG, daily Impression/Plan: Patient is recommended for rescind of IVC and is cleared from acute psychiatric services. Patient recommendations were provided. Patient denies suicidal and homicidal ideations. There is no observed behavior that suggests patient is responding to internal stimuli. Patient engaged in organized, rational, linear thought processes and was able to express needs and wants in a logical manner. Patient's boyfriend agreed to be responsible for me dication management and administration, increased observation for signs of emotional distress, facilitating follow-up appointments with a mental health provider, assisting with re-filing for Medicaid, and removing access to other items in the home that can be used for suicidal purposes. Patient was provided with a mental health resource list with the contact information for IFS highlighted and walk in times of facilities. Dr. Vieyra was consulted on the care and management of this patient; attending physician is in agreement with recommendations and disposition.
== END 2019-06-23 12:00 | disposition home or self-care (01) ==
LOC: ER 11:58
DX: T42.6X2A Poisoning by other antiepileptic and sedative-hypnotic drugs, intentional self-harm, initial encounter (principal); R06.02 Shortness of breath; Y92.009 Unspecified place in unspecified non-institutional (private) residence as the place of occurrence of the external cause; F17.200 Nicotine dependence, unspecified, uncomplicated
CPT/HCPCS: 36415; 80053; 80177; 80307; 81001; 83540; 84703; 85025; 93005; 93010; 99285

== ENCOUNTER 2019-08-18 08:25 | Emergency (ER) | payer SELFPAY ==
[2019-08-18 08:29] VITALS: BP 134/69
--- NOTE | 2019-08-18 09:13 | ER Document Report ---
ED Eye Complaint - General Chief Complaint: Redness of Eye Stated Complaint: EYE PROBLEM Time Seen by Provider: 08/18/19 08:50 Mode of Arrival: Ambulatory Information source: Patient TRAVEL OUTSIDE OF THE [place] IN LAST 30 DAYS: No - HPI Notes: Patient presents with right eye pain redness and some tearing. She states she has had no change in vision. She states that her eye has been mildly painful with some swelling of her eyelid she has noticed. She states she woke up this way 3 days ago. She denies any known trauma. She is had no congestion or f alfredo. No known COVID exposures. She states that she has had some colored discharge from the eye as well. The pain in the eye is constant and mild. Nothing makes it better or worse. It does not radiate. - Related Data Allergies/Adverse Reactions: No Known Allergies Allergy (Verified 06/22/19 12:24) Past Medical History - General Information source: Patient - Social History Smoking Status: Never Smoker Frequency of alcohol use: None Drug Abuse: None Family History: Reviewed & Not Pertinent Patient has homicidal ideation: No Neurological Medical History: Reports: Hx Seizures Renal/ Medical History: Denies: Hx Peritoneal Dialysis Psychiatric Medical History: Reports: Hx Attention Deficit Hyperactivity Disorder, Hx Bipolar Disorder - Immunizations Immunizations up to date: Yes Hx Diphtheria, Pertussis, Tetanus Vaccination: Yes Physical Exam - Vital signs Vitals: Temp Pulse Resp BP Pulse Ox 98.9 F 84 16 134/69 H 99 08/18/19 08:29 08/18/19 08:29 08/18/19 08:29 08/18/19 08:29 08/18/19 08:29 Interpretation: Normal - General General appearance: Appears well, Alert - HEENT Head: Normocephalic, Atraumatic Eyes: Normal Conjunctiva: Other - There appears to be diffuse hemorrhagic conjunctivitis on the right. Left conjunctiva is normal. Cornea: Normal Extraocular movements intact: Yes Eyelashes: Normal Pupils: PERRL Nerve palsy: No - Respiratory Respiratory status: No respiratory distress Chest status: Nontender Breath sounds: Normal Chest palpation: Normal - Cardiovascular Rhythm: Regular Heart sounds: Normal auscultation Murmur: No - Abdominal Inspection: Normal Distension: No distension - Back Back: Normal, Nontender - Extremities General upper extremity: Normal inspection, Nontender, Normal color, Normal ROM, Normal temperature General lower extremity: Normal inspection, Nontender, Normal color, Normal ROM, Normal temperature, Normal weight bearing. No: Felix's sign - Neurological Neuro grossly intact: Yes Cognition: Normal Orientation: AAOx4 [place] Coma Scale Eye Opening: Spontaneous [place]ian Coma Scale Verbal: Oriented [place] Coma Scale Motor: Obeys Commands [place] Coma Scale Total: 15 Speech: Normal - Psychological Associated symptoms: Normal affect, Normal mood - Skin Skin Temperature: Warm Skin Moisture: Dry Skin Color: Normal Course - Re-evaluation Re-evalutation: 08/18/19 09:14 I called and spoke to the internal combustion engineer who will see the patient in the office - Vital Signs Vital signs: Temp Pulse Resp BP Pulse Ox 98.9 F 84 16 134/69 H 99 08/18/19 08:37 08/18/19 08:29 08/18/19 08:29 08/18/19 08:29 08/18/19 08:29 Discharge - Discharge Clinical Impression: Conjunctival hemorrhage, right eye Condition: Stable Disposition: HOME, SELF-CARE Instructions: Conjunctivitis ([facility]) Additional Instructions: Please go straight to Dr. Meehan's office Forms: Return to Work Referrals: JUDY MEEHAN DO [ACTIVE STAFF] - 08/18/19 9:45 am
== END 2019-08-18 09:22 | disposition home or self-care (01) ==
LOC: ER 08:25
DX: H11.31 Conjunctival hemorrhage, right eye (principal)
CPT/HCPCS: 99282

== ENCOUNTER 2019-11-16 12:31 | Emergency (ER) | payer SELFPAY ==
[2019-11-16 12:39] VITALS: BP 143/75
--- NOTE | 2019-11-16 13:12 | ER Document Report ---
ED Medical Screen (RME) - General Chief Complaint: Seizure Stated Complaint: POSSIBLE SEIZURE Time Seen by Provider: 11/16/19 13:05 Notes: Patient is a 24-year-old female who presents the emergency department with a chief complaint of a "seizure." Patient states that she had 1 this morning. Patient states that she has had these episodes in the past, but has never been formally diagnosed with seizures. Does not take any antiseizure medication. Patient admits to urinating on herself and not remembering what happened during the event. Patient has reported to the nurse that she has suicidal thoughts. Exam: Alert and oriented. I have greeted and performed a rapid initial assessment of this patient. A comprehensive ED assessment and evaluation of the patient, analysis of test results and completion of medical decision making process will be conducted by an additional ED providers. TRAVEL OUTSIDE OF THE [place] IN LAST 30 DAYS: No - Related Data Allergies/Adverse Reactions: No Known Allergies Allergy (Verified 06/22/19 12:24) Past Medical History - Social History Frequency of alcohol use: None Drug Abuse: None Neurological Medical History: Reports: Hx Seizures Renal/ Medical History: Denies: Hx Peritoneal Dialysis Psychiatric Medical History: Reports: Hx Attention Deficit Hyperactivity Disorder, Hx Bipolar Disorder - Immunizations Immunizations up to date: Yes Hx Diphtheria, Pertussis, Tetanus Vaccination: Yes Physical Exam - Vital signs Vitals: Temp Pulse Resp BP Pulse Ox 98.9 F 76 20 143/75 H 99 11/16/19 12:38 11/16/19 12:38 11/16/19 12:38 11/16/19 12:38 11/16/19 12:38 Course - Vital Signs Vital signs: Temp Pulse Resp BP Pulse Ox 98.9 F 76 20 143/75 H 99 11/16/19 12:38 11/16/19 12:38 11/16/19 12:38 11/16/19 12:38 11/16/19 12:38
[2019-11-16] MEDS ORDERED: IPRATROPIUM/ALBUTEROL 0.5-2.5 MG/3 ML AMPUL NEB ONE ×2 (13:26→21:15)
[2019-11-16 14:01] LABS: ABSOLUTE LYMPHOCYTES (AUTO) 1.3 10^3/uL (0.5-4.7); ABSOLUTE MONOCYTES (AUTO) 0.9 10^3/uL (0.1-1.4); ABSOLUTE NEUT (AUTO) 4.2 10^3/uL (1.7-8.2); BASOPHILS % (AUTO) 0.3 % (0-2); EOSINOPHILS % (AUTO) 0.3 % (0-6); HEMATOCRIT 33.4 % (36.0-47.0); HEMOGLOBIN 10.6 g/dL (12.0-15.5); LYMPHOCYTES % (AUTO) 20.5 % (13-45); MEAN CORPUSCULAR HEMOGLOBIN 25.3 pg (27.0-33.4); MEAN CORPUSCULAR HGB CONC 31.8 g/dL (32.0-36.0); MEAN CORPUSCULAR VOLUME 80 fl (80-97); MONOCYTES % (AUTO) 13.7 % (3-13); PLATELET COUNT 180 10^3/uL (150-450); RED BLOOD COUNT 4.19 10^6/uL (3.72-5.28); RED CELL DISTRIBUTION WIDTH 15.9 % (11.5-14.0); SEGMENTED NEUTROPHILS % (AUTO) 65.2 % (42-78); TOTAL CELLS COUNTED % (AUTO) 100 %; WHITE BLOOD COUNT 6.5 10^3/uL (4.0-10.5)
--- NOTE | 2019-11-16 14:07 | RADIOLOGY REPORT (SQ) ---
EXAM DESCRIPTION: CHEST 2 VIEWS IMAGES COMPLETED DATE/TIME: 11/16/2019 1:57 pm REASON FOR STUDY: chest pain COMPARISON: 08/25/2018 EXAM PARAMETERS: NUMBER OF VIEWS: two views TECHNIQUE: Digital Frontal and Lateral radiographic views of the chest acquired. RADIATION DOSE: NA LIMITATIONS: none FINDINGS: LUNGS AND PLEURA: No opacities, masses or pneumothorax. No pleural effusion. MEDIASTINUM AND HILAR STRUCTURES: No masses or contour abnormalities. HEART AND VASCULAR STRUCTURES: Heart normal size. No evidence for failure. BONES: No acute findings. HARDWARE: None in the chest. OTHER: No other significant finding. IMPRESSION: NO ACUTE RADIOGRAPHIC FINDING IN THE CHEST. TECHNICAL DOCUMENTATION: JOB ID: [id number] 2010 [employer]- All Rights Reserved Reading location - IP/workstation name: [email or web address]
[2019-11-16 14:21] LABS: ALBUMIN 3.9 g/dL (3.5-5.0); ALKALINE PHOSPHATASE 78 U/L (38-126); ANION GAP 6 (5-19); ASPARTATE AMINO TRANSFERASE 22 U/L (14-36); BILIRUBIN,TOTAL 0.6 mg/dL (0.2-1.3); BLOOD UREA NITROGEN 3 mg/dL (7-20); CALCIUM 9.4 mg/dL (8.4-10.2); CARBON DIOXIDE 26 mmol/L (22-30); CHLORIDE 105 mmol/L (98-107); GLUCOSE 103 mg/dL (75-110); POTASSIUM 3.9 mmol/L (3.6-5.0); TOTAL PROTEIN 7.5 g/dL (6.3-8.2)
[2019-11-16 14:25] LABS: ACETAMINOPHEN < 10 ug/mL (10-30); ALCOHOL < 10 mg/dL (NONE DETECTED); SALICYLATE < 1.0 mg/dL (2.0-20.0)
[2019-11-16] MEDS ORDERED: PHENYTOIN SODIUM INJ/PF 250 MG/5 ML SDV IV ONE ×2 (19:13→21:15)
[2019-11-16 19:21] LABS: APPEARANCE,URINE SLIGHTLY-CLOUDY; BILIRUBIN,URINE NEGATIVE (NEGATIVE); COLOR,URINE YELLOW; GLUCOSE, URINE NEGATIVE (NEGATIVE); KETONES,URINE TRACE mg/dL (NEGATIVE); PROTEIN,URINE 30 mg/dL (NEGATIVE); URINE SPECIFIC GRAVITY 1.024
--- NOTE | 2019-11-16 19:22 | ER Document Report ---
ED Seizure - General Chief Complaint: Seizure Stated Complaint: POSSIBLE SEIZURE Time Seen by Provider: 11/16/19 13:05 Primary Care Provider: [facility] [Provider Group] - Follow up as needed LUIS HOBBS MD [NO LOCAL MD] - Follow up as needed Mode of Arrival: Ambulatory Information source: Patient Notes: 24-year-old female presented to ED for a seizure this morning. She states she was asleep when her states she had a seizure she wet herself and she did bite her tongue. She states that she does know she wet herself but she does not remember anything happening with the seizure. She states she has been having seizures about once a week for many years but has not been able to get her medicines prescription filled due to not having insurance. She states she has been to the emergency room multiple times but never gets her medicine and takes it. She states she did have a virtual visit with [facility] today and they told her that she needed to come in later in the week to fill out paperwork. She still did not get the medication. She did tell the triage nurse earlier that she had some shortness of breath but there was no shortness of breath when I examined her. - HPI Severity: None Pain Level: Denies Continued on arrival to ED: No Can details of seizure be obtained/verified: Yes Episode witnessed (by whom): Yes - Current seizure medications: Other - Patient states she has never filled any medications that were prescribed because she cannot afford them Preceding symptoms/context: Other - Patient states she was sleeping and stated that she had a seizure when she woke up she had wet herself and had some bite guidry in her gums. She states she has been having seizures once or twice a week for many years Character of seizure: Incontinent bladder Post-ictal symptoms: Other - Patient states she woke up with a headache after the seizure her bed was wet and she had some bite guidry on her arms Injuries: Mouth Associated Symptoms: Other - Patient states she was asleep for the seizure and the post ictal. - Related Data Allergies/Adverse Reactions: No Known Allergies Allergy (Verified 06/22/19 12:24) Past Medical History - General Information source: Patient - Social History Smoking Status: Current Some Day Smoker Cigarette use (# per day): Yes Smoking Education Provided: Yes Frequency of alcohol use: None Drug Abuse: None Family History: Reviewed & Not Pertinent - Past Medical History Cardiac Medical History: Reports: None Pulmonary Medical History: Reports: None EENT Medical History: Reports: None Neurological Medical History: Reports: Hx Seizures Endocrine Medical History: Reports: None Renal/ Medical History: Reports: None Malignancy Medical History: Reports: None GI Medical History: Reports: None Musculoskeletal Medical History: Reports None Skin Medical History: Reports None Psychiatric Medical History: Reports: Hx Attention Deficit Hyperactivity Disorder, Hx Bipolar Disorder, Hx Depression Traumatic Medical History: Reports: None Infectious Medical History: Reports: None Surgical Hx: Negative Past Surgical History: Reports: None - Immunizations Immunizations up to date: Yes Hx Diphtheria, Pertussis, Tetanus Vaccination: Yes Review of Systems - Review of Systems Constitutional: No symptoms reported EENT: No symptoms reported Cardiovascular: No symptoms reported Respiratory: No symptoms reported Gastrointestinal: No symptoms reported Genitourinary: No symptoms reported Female Genitourinary: No symptoms reported Musculoskeletal: No symptoms reported Skin: No symptoms reported Hematologic/Lymphatic: No symptoms reported Neurological/Psychological: No symptoms reported Physical Exam - Vital signs Vitals: Temp Pulse Resp BP Pulse Ox 98.9 F 76 20 143/75 H 99 11/16/19 12:38 11/16/19 12:38 11/16/19 12:38 11/16/19 12:38 11/16/19 12:38 Interpretation: Normal - General General appearance: Appears well, Alert - HEENT Head: Normocephalic, Atraumatic Eyes: Normal Pupils: PERRL Ears: Normal External canal: Normal Tympanic membrane: Normal Sinus: Normal Nasal: Normal Mouth/Lips: Normal, Other - No lacerations noted no bite guidry noted Mucous membranes: Normal Pharynx: Normal Neck: Normal - Respiratory Respiratory status: No respiratory distress. No: Respiratory distress Chest status: Nontender Breath sounds: No: Decreased air movement, Nonproductive cough, Productive cough, Rales, Rhonchi, Stridor, Wheezing Chest palpation: Normal - Cardiovascular Rhythm: Regular Heart sounds: Normal auscultation Murmur: No - Abdominal Inspection: Normal Distension: No distension Bowel sounds: Normal Tenderness: Nontender Organomegaly: No organomegaly - Back Back: Normal, Nontender - Extremities General upper extremity: Normal inspection, Nontender, Normal color, Normal ROM, Normal temperature General lower extremity: Normal inspection, Nontender, Normal color, Normal ROM, Normal temperature, Normal weight bearing. 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 Asher he recommended ordering 1500 mg of Dilantin which was ordered at 7:00 tonight. The medicine was given and when we have attempted to walk her x2 she is still a little unsteady on her feet. The second time walking she stated she was much more steady but she was still a little lightheaded. I consulted Dr. Asher he said to just keep walking her until she is able to walk unassisted then she can go home. I have discussed this with KARIN Gonzalez and she will approved when the patient can go home. 11/17/19 01:03 Patient was interviewed by mental health because of some of the answers she had on her interview. She was given resources to follow-up with. She has been seen multiple times for depression and is never filled any of those medications either. Did discuss with her the fact that she would need to be on Dilantin codie ry night I did give her a good Rx coupon for 300 mg capsules of Dilantin 1 a day at bedtime and she did agree to fill the prescription and take the prescription. - Vital Signs Vital signs: Temp Pulse Resp BP Pulse Ox 98.9 F 76 25 H 143/75 H 100 11/16/19 12:38 11/16/19 12:38 11/17/19 00:00 11/16/19 12:38 11/17/19 01:00 - Laboratory Result Diagrams: 11/16/19 13:30 11/16/19 13:30 Laboratory results interpreted by me: 11/16/19 11/16/19 11/16/19 13:30 13:30 19:00 Hgb 10.6 L Hct 33.4 L MCH 25.3 L MCHC 31.8 L RDW 15.9 H [place] % (Auto) 13.7 H BUN 3 L Urine Protein 30 H Urine Ketones TRACE H Urine Blood SMALL H Urine Urobilinogen 2.0 H Leukocyte Esterase Rfl MODERATE H Salicylates < 1.0 L Acetaminophen < 10 L - Diagnostic Test Radiology reviewed: Image reviewed, Reports reviewed Discharge - Discharge Clinical Impression: Seizures Disposition: HOME, SELF-CARE Additional Instructions: Seizure You have had a seizure. Seizure disorders (epilepsy) of one sort or another affect about one out of 50 people. The seizure occurs because of abnormal electrical activity in the brain. Seizures may be due to drugs and alcohol, strokes, brain injury, or infection. In the most common form of epilepsy, no cause can be found. You will require further evaluation to determine the cause of your seizure, and to determine whether anti-seizure medication is required. This follow-up testing is important, so please call us if you encounter problems with scheduling of tests or appointments. YOU SHOULD NOT DRIVE until released to do so by your physician. The law requires that seizures be reported to the light truck driver's license bureau--a seizure while driving could be catastrophic. Call the doctor if seizures recur, or if you develop new symptoms such as fever, severe headache, stiff neck, confusion or increasing sleepiness, weakness or numbness, or visual problems. Seizure, Known Epileptic You have had a seizure. Seizures may "break through" in an epileptic due to stress of infection or injury, a change in blood chemistry, or drug and alcohol use. Another common cause is failure to take medication as prescribed. Your doctor has evaluated your situation for the likely cause of this seizure. It is important that you follow his advice concerning any medication changes and follow-up care. Further testing of anti-seizure medication levels in your blood may be necessary. If you have a light truck driver's license, it's important that you DO NOT DRIVE until given permission by your physician. This seizure must be reported to the light truck driver's license bureau. Call the doctor or return if seizures recur, or if new or unusual symptoms arise -- such as severe headache, confusion, excessive sleepiness, local weakness or numbness, neck stiffness, or fever. The way to control your seizures are to take the medications as prescribed. If you do not take the medications you will continue to have seizures. Is very important that you follow-up with your neurologist as we have discussed. You cannot work or drive while you are not treated your seizures. You have to be seizure-free in order to hold a job. Dilantin Dilantin is used to prevent seizures. It causes very few side effects and is not addicting. We usually get blood tests to monitor the level of Dilantin in your blood. Most patients take Dilantin as a single daily dose. When first starting the medicine, you may want to divide it into three doses daily to prevent drowsiness or other side effects. Unless a large "loading dose" is given, it may take about a week to reach the full anti seizure effect of Dilantin. Many medicines can change the amount of Dilantin in your blood stream. Don't add any new drug without discussing it with your doctor. Alcohol can affect your blood Dilantin level. "Binge" drinking is particularly dangerous. The amount of a phenytoin dose that goes into your blood varies among different brands. If you change to a different brand of phenytoin, you should notify your doctor. If you become while taking Dilantin, continue the medicine. Contact your physician. A seizure can be dangerous for your baby -- much more dangerous than anti seizure drugs. We don't recommend breast feeding while using Dilantin. Phenytoin can cause enlargement of the gums. Good dental hygiene (brushing, flossing, regular dental checkups) usually prevents this. Call the doctor if you develop skin rash, sores in the mouth, unexplained blisters, swollen gums, or any other new symptom while taking Dilantin. FOLLOW-UP CARE: If you have been referred to a physician for follow-up care, call the physicians office for an appointment as you were instructed or within the next two days. If you experience worsening or a significant change in your symptoms, notify the physician immediately or return to the Emergency Department at any time for re-evaluation. Prescriptions: Phenytoin Sodium Extended [Phenytek] 300 mg PO QHS #30 capsule Forms: Elevated Blood Pressure, Special Work Note, Smoking Cessation Education Referrals: [facility] [Provider Group] - Follow up as needed LUIS HOBBS MD [NO LOCAL MD] - Follow up as needed
[2019-11-16 19:41] LABS: URINE AMPHETAMINES SCREEN NEGATIVE; URINE BARBITURATES SCREEN NEGATIVE; URINE BENZODIAZEPINES SCREEN NEGATIVE; URINE COCAINE SCREEN NEGATIVE; URINE MARIJUANA (THC) SCREEN UNCONFIRMED POSITIVE; URINE METHADONE SCREEN NEGATIVE; URINE PHENCYCLIDINE SCREEN NEGATIVE
--- NOTE | 2019-11-16 20:21 | PSYCHOLOGICAL NOTE ---
Psych Note - Psych Note Date seen by psych provider: 11/16/19 Time seen by psych provider: 18:40 - Evaluation from [id number]. Psych Note: Patient is a 24 year old female who presented to the Emergency Department this afternoon via EMS for post seizure. During triage screening patient answered yes to being depressed/down/feeling hopeless and having suicidal ideation in the last two weeks. Patient reported "I just feel bad physically from having the seizures this mo rning." She denied feeling depressed now. She denied current suicidal ideation. She stated she did not take the prescribed medications of Depakote 500MG twice a day and Zyprexa 2.5 daily, did not follow up with mental health and just last week was going to try to go to [facility] for renewing Medicaid but her doctor fell she said which was everything she was recommended to do for follow up after her 06/22/2019 ED visit for overdose of iron pills and Keppra after she reported being off medications for 2 years and had denied previous attempts at harming/hurting/killing self. She stated she doesn't have insurance and financial difficulty which is why she did not fill medication. Patient reported she saw a neurologist in [place], [place] where they connected cord to her and informed her she did not have epilepsy so has had difficulty getting Medicaid/Disability (noted tried twice). She stated her original Medicaid was stopped in [phone]. Patient identified when she was in elementary school she was prescribed Concerta which was later switched to Adderall. She stated she has been off that medication since years. She stated she has a history of Bipolar and ADHD. She denied alcohol and drug use. Patient UDS was positive for Cannabis. Patient was alert and oriented to self, person, place, time and situation. Mood was euthymic with congruent affect. She denied current suicidal and homicidal ideation. Patient did not appear to be responding to internal stimuli as evidenced by fair eye contact and answering questions appropriately when addressed. Thought processes were linear and organized. Conversational speech was within normal limits for rate, tone and prosody. Intellectual abilities are estimated to be average. Insight, judgment and impulse control were fair as evidenced by being engaged and being honest about not following up from previous ED visit. Clinical Presentation: Post Seizure: feeling bad physically from seizures and main concern per patient Said yes to feeling Depressed/Down/Hopeless in the past 2 weeks, denied current Said yes to having Suicidal thoughts in the past 2 weeks, denied current Cannabis Use (UDS positive) Impression/Plan: Patient is cleared from acute psychiatric services. She denied current depression and suicidal ideation. She stated main concern was feeling physically bad from the seizures this morning. Provided patient with the outpatient mental health resource sheet which highlighted both MCM numbers and walk in times for [facility]. Consulted with Dr. Vieyra regarding the management and care of patient. ED Physician in agreement with recommendations.
--- NOTE | 2019-11-17 08:40 | EKG REPORT ---
SEVERITY:- NORMAL ECG - SINUS RHYTHM : Confirmed by: Lauren Del Rosario MD 17-Nov-2019 08:40:05
== END 2019-11-17 02:10 | disposition home or self-care (01) ==
LOC: ER 12:31
DX: G40.909 Epilepsy, unspecified, not intractable, without status epilepticus (principal); F17.210 Nicotine dependence, cigarettes, uncomplicated
CPT/HCPCS: 93005; 94640; 99284; 96374; 36415; 80307 ×4; 84703; 85025; 80053; 81001; 71046; 93010; J1165; 87086; 87088

== ENCOUNTER 2020-01-04 11:26 | Emergency (ER) | payer SELFPAY ==
--- NOTE | 2020-01-04 12:17 | ER Document Report ---
ED Medical Screen (RME) - General Chief Complaint: Seizure Stated Complaint: WEAKNESS,HEADACHE Time Seen by Provider: 01/04/20 12:02 TRAVEL OUTSIDE OF THE [place] 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 Patient states she is never been formally diagnosed with seizures, has not been on any seizure medications for the last couple of months. Patient reports she has not been seen by neurologist due to lack of insurance and her Medicaid is not active. Patient has not been seen by a neurologist, states she started having seizures when she was 18, she is unsure of what kind of seizures she is having but states that she does have an aura and states she has confusion after her seizures which sounds like a grand mal seizure. Patient is unsure of how many seizures she has had this summer. Last menstrual cycle was December 19, 2019. Reports she did have a seizure on December 30 at 2 AM. Denies any fevers chills, chest pain, shortness of breath, nausea vomiting or diarrhea. Patient states she did have an EEG done and they did not see anything, so she is unsure if she has seizures. I have greeted and performed a rapid initial assessment of this patient. A comprehensive ED assessment and evaluation of the patient, analysis of test results and completion of the medical decision making process will be conducted by additional ED providers. PHYSICAL EXAMINATION: GENERAL: Well-appearing, well-nourished and in no acute distress. HEAD: Atraumatic, normocephalic. EYES: Pupils equal round extraocular movements intact, conjunctiva are normal. NECK: Normal range of motion CV: s1, s2 regular LUNGS: No respiratory distress Musculoskeletal: Normal range of motion NEUROLOGICAL: Normal speech, normal gait. SKIN: Warm, Dry, normal turgor, no rashes or lesions noted. - Related Data Allergies/Adverse Reactions: No Known Allergies Allergy (Verified 01/04/20 11:39) Past Medical History - Social History Chew tobacco use (# tins/day): No Frequency of alcohol use: None Drug Abuse: None Neurological Medical History: Reports: Hx Seizures Renal/ Medical History: Denies: Hx Peritoneal Dialysis Psychiatric Medical History: Reports: Hx Attention Deficit Hyperactivity Disorder, Hx Bipolar Disorder, Hx Depression - Immunizations Immunizations up to date: Yes Hx Diphtheria, Pertussis, Tetanus Vaccination: Yes Physical Exam - Vital signs Vitals: Temp Pulse Resp BP Pulse Ox 98.7 F 91 16 148/94 H 96 01/04/20 11:32 01/04/20 11:32 01/04/20 11:32 01/04/20 11:32 01/04/20 11:32 Course - Vital Signs Vital signs: Temp Pulse Resp BP Pulse Ox 98.7 F 91 16 148/94 H 96 01/04/20 11:32 01/04/20 11:32 01/04/20 11:32 01/04/20 11:32 01/04/20 11:32
[2020-01-04 12:41] LABS: ABSOLUTE LYMPHOCYTES (AUTO) 1.5 10^3/uL (0.5-4.7); ABSOLUTE MONOCYTES (AUTO) 0.5 10^3/uL (0.1-1.4); ABSOLUTE NEUT (AUTO) 3.4 10^3/uL (1.7-8.2); BASOPHILS % (AUTO) 0.6 % (0-2); EOSINOPHILS % (AUTO) 0.7 % (0-6); HEMATOCRIT 32.9 % (36.0-47.0); HEMOGLOBIN 10.5 g/dL (12.0-15.5); LYMPHOCYTES % (AUTO) 27.8 % (13-45); MEAN CORPUSCULAR HEMOGLOBIN 25.3 pg (27.0-33.4); MEAN CORPUSCULAR HGB CONC 31.8 g/dL (32.0-36.0); MEAN CORPUSCULAR VOLUME 80 fl (80-97); MONOCYTES % (AUTO) 9.1 % (3-13); PLATELET COUNT 267 10^3/uL (150-450); RED BLOOD COUNT 4.14 10^6/uL (3.72-5.28); RED CELL DISTRIBUTION WIDTH 14.8 % (11.5-14.0); SEGMENTED NEUTROPHILS % (AUTO) 61.8 % (42-78); TOTAL CELLS COUNTED % (AUTO) 100 %; WHITE BLOOD COUNT 5.5 10^3/uL (4.0-10.5)
[2020-01-04 12:52] LABS: ALKALINE PHOSPHATASE 127 U/L (38-126); ANION GAP 8 (5-19); ASPARTATE AMINO TRANSFERASE 31 U/L (14-36); BILIRUBIN,DIRECT 0.3 mg/dL (0.0-0.4); BILIRUBIN,TOTAL 0.4 mg/dL (0.2-1.3); BLOOD UREA NITROGEN 3 mg/dL (7-20); CALCIUM 9.2 mg/dL (8.4-10.2); CARBON DIOXIDE 31 mmol/L (22-30); CHLORIDE 99 mmol/L (98-107); GLUCOSE 108 mg/dL (75-110); POTASSIUM 3.7 mmol/L (3.6-5.0); TOTAL PROTEIN 7.9 g/dL (6.3-8.2)
[2020-01-04 13:27] LABS: APPEARANCE,URINE SLIGHTLY-CLOUDY; BILIRUBIN,URINE SMALL (NEGATIVE); COLOR,URINE YELLOW; GLUCOSE, URINE NEGATIVE (NEGATIVE); KETONES,URINE NEGATIVE (NEGATIVE); LEUKOCYTE ESTERASE,URINE SMALL (NEGATIVE); NITRITE,URINE NEGATIVE (NEGATIVE); PROTEIN,URINE >=500 mg/dL (NEGATIVE); URINE SPECIFIC GRAVITY 1.023
[2020-01-04] MEDS ORDERED: LEVETIRACETAM 500 MG/NACL-ISO 500 MG/100 ML RTUPB IV ONE (16:52)
[2020-01-04] MEDS ORDERED: LEVETIRACETAM 500 MG TABLET PO ONE (17:17)
--- NOTE | 2020-01-04 17:19 | ER Document Report ---
ED Seizure - General Chief Complaint: Seizure Stated Complaint: WEAKNESS,HEADACHE Time Seen by Provider: 01/04/20 12:02 Primary Care Provider: [facility] [Provider Group] - Follow up tomorrow LUIS HOBBS MD [NO LOCAL MD] - Follow up tomorrow Mode of Arrival: Ambulatory Information source: Patient Notes: Patient states that she was at work and had an episode of difficulty breathing and felt faint. Patient states that this is typically how she feels prior to having a seizure. Patient states she was able to fight this episode off by deep breathing exercises. Patient states that she had a seizure last week. Patient states that she has a history of seizures although is not currently on any medications due to lack of insurance. Patient denies any recent illness or fever. Patient is uncertain what medication she is supposed to take for her seizures. Patient states that her has witnessed her seizures in which she has generalized shaking will occasionally bite her tongue and be incontinent of urine. 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 denies: Chills EENT: No symptoms reported Cardiovascular: Lightheaded Respiratory: Other - Episode of difficulty breathing. denies: Cough Gastrointestinal: No symptoms reported. denies: Vomiting Genitourinary: No symptoms reported Female Genitourinary: No symptoms reported Musculoskeletal: No symptoms reported Skin: No symptoms reported Hematologic/Lymphatic: No symptoms reported Neurological/Psychological: No symptoms reported Physical Exam - Vital signs Vitals: Temp Pulse Resp BP Pulse Ox 98.7 F 91 16 148/94 H 96 01/04/20 11:32 01/04/20 11:32 01/04/20 11:32 01/04/20 11:32 01/04/20 11:32 - Notes Notes: PHYSICAL EXAMINATION: GENERAL: Well-appearing and in no acute distress. HEAD: Atraumatic, normocephalic. EYES: sclera anicteric, conjunctiva are normal. ENT: nares patent. Moist mucous membranes. NECK: Normal range of motion, supple without lymphadenopathy LUNGS: CTAB and equal. No wheezes rales or rhonchi. HEART: Regular rate and rhythm without murmurs ABDOMEN: Soft, nontender, normal bowel sounds, no guarding. EXTREMITIES: Normal range of motion, no pitting edema. No cyanosis. BACK: No midline tenderness, no step-off or deformity. No CVA tenderness NEUROLOGICAL: Cranial nerves grossly intact. Normal speech. Normal gait. PSYCH: Normal mood, normal affect. SKIN: Warm, Dry, normal turgor, no rashes or lesions noted Course - Re-evaluation Re-evalutation: 01/04/20 17:18 Patient with a known history of seizure disorder and is currently not on any antiepileptic medication. Patient encouraged [facility] as well as neurology for further evaluation. Will start patient on Keppra as review of previous visits demonstrates that this is the medications typically she has been on in the past. Patient advised that she should not drive or operate machinery until cleared by neurology. Patient does have some leukocyte esterase on urinalysis although does have increased epithelial cells noted on urinalysis. Urine culture will be obtained. Patient nontoxic in appearance and otherwise stable for discharge. 01/04/20 17:22 - Vital Signs Vital signs: Temp Pulse Resp BP Pulse Ox 98.5 F 87 16 145/89 H 98 01/04/20 17:46 01/04/20 17:46 01/04/20 17:46 01/04/20 17:46 01/04/20 17:46 - Laboratory Result Diagrams: 01/04/20 12:25 01/04/20 12:25 Laboratory results interpreted by me: 01/04/20 01/04/20 01/04/20 12:25 12:25 13:05 Hgb 10.5 L Hct 32.9 L MCH 25.3 L MCHC 31.8 L RDW 14.8 H Carbon Dioxide 31 H BUN 3 L Alkaline Phosphatase 127 H Urine Protein >=500 H Urine Bilirubin SMALL H Urine Urobilinogen 2.0 H Ur Leukocyte Esterase SMALL H - EKG Interpretation by Me EKG shows normal: Sinus rhythm Rate: Normal Rhythm: NSR Additional EKG results interpreted by me: 01/04/20 17:59 Sinus rhythm with a rate of 84, QTc 431, no acute ischemic changes Discharge - Discharge Clinical Impression: Seizure disorder, Noncompliance with medication regimen UTI (urinary tract infection) Qualifiers: Urinary tract infection type: site unspecified Hematuria presence: without hematuria Qualified Code(s): N39.0 - Urinary tract infection, site not specified Condition: Stable Disposition: HOME, SELF-CARE Instructions: Cephalexin ([facility]), Seizure, Known Epileptic ([facility]), Urinary Tract Infection ([facility]) Additional Instructions: Return immediately for any new or worsening symptoms Followup with your primary care provider, call tomorrow to make a followup appointment Follow-up with neurology for further evaluation Get your prescriptions filled and take as directed. Prescriptions: Cephalexin Monohydrate [Keflex 500 mg Capsule] 500 mg PO BID 5 Days #10 capsule Levetiracetam [Keppra 500 mg Tablet] 500 mg PO Q12 #60 tablet Forms: Return to Work Referrals: [facility] [Provider Group] - Follow up tomorrow LUIS HOBBS MD [NO LOCAL MD] - Follow up tomorrow
[2020-01-04 17:47] VITALS: BP 145/89
--- NOTE | 2020-01-05 00:57 | EKG REPORT ---
SEVERITY:- NORMAL ECG - SINUS RHYTHM : Confirmed by: Helena Cadena 05-Jan-2020 00:56:23
== END 2020-01-04 17:47 | disposition home or self-care (01) ==
LOC: ER 11:26
DX: N39.0 Urinary tract infection, site not specified (principal); G40.909 Epilepsy, unspecified, not intractable, without status epilepticus; R51 Headache; R53.1 Weakness; F17.200 Nicotine dependence, unspecified, uncomplicated; Z91.11 Patient's noncompliance with dietary regimen
CPT/HCPCS: 36415; 80053; 81001; 81025; 85025; 87086; 93005; 93010; 99284

== ENCOUNTER 2020-02-05 15:21 | Emergency (ER) | payer SELFPAY ==
--- NOTE | 2020-02-05 15:59 | ER Document Report ---
ED Medical Screen (RME) - General Chief Complaint: Seizure Stated Complaint: SEIZURES Time Seen by Provider: 02/05/20 15:49 Notes: Patient is a 24-year-old female who presents emergency department after feeling shaky. Patient states that she was going to work and felt that she was having a seizure. Patient states that she is supposed to be on Keppra, but due to not having insurance, the patient does not have medication. Patient also reports chest pain. Patient is a everyday smoker. Exam: S1, S2. Alert and oriented. I have greeted and performed a rapid initial assessment of this patient. A comprehensive ED assessment and evaluation of the patient, analysis of test results and completion of medical decision making process will be conducted by an additional ED providers. TRAVEL OUTSIDE OF THE [place] IN LAST 30 DAYS: No - Related Data Allergies/Adverse Reactions: No Known Allergies Allergy (Verified 01/04/20 11:39) Past Medical History Neurological Medical History: Reports: Hx Seizures Renal/ Medical History: Denies: Hx Peritoneal Dialysis Psychiatric Medical History: Reports: Hx Attention Deficit Hyperactivity Disorder, Hx Bipolar Disorder, Hx Depression - Immunizations Immunizations up to date: Yes Hx Diphtheria, Pertussis, Tetanus Vaccination: Yes
--- NOTE | 2020-02-05 16:52 | RADIOLOGY REPORT (SQ) ---
EXAM DESCRIPTION: CHEST SINGLE VIEW IMAGES COMPLETED DATE/TIME: 02/05/2020 4:31 pm REASON FOR STUDY: chest pain COMPARISON: Chest x-ray 11/16/2019, 08/25/2018. EXAM PARAMETERS: NUMBER OF VIEWS: One view. TECHNIQUE: Single frontal radiographic view of the chest acquired. RADIATION DOSE: NA LIMITATIONS: None. FINDINGS: LUNGS AND PLEURA: No consolidation, pneumothorax or pleural effusion. MEDIASTINUM AND HILAR STRUCTURES: No masses. Contour normal. HEART AND VASCULAR STRUCTURES: Heart normal in size. Normal vasculature. BONES: No acute findings. HARDWARE: None in the chest. IMPRESSION: NO ACUTE RADIOGRAPHIC FINDING IN THE CHEST. TECHNICAL DOCUMENTATION: JOB ID: [id number] [employer]- All Rights Reserved Reading location - IP/workstation name: [email or web address]
[2020-02-05 17:17] LABS: ABSOLUTE LYMPHOCYTES (AUTO) 1.6 10^3/uL (0.5-4.7); ABSOLUTE MONOCYTES (AUTO) 0.7 10^3/uL (0.1-1.4); ABSOLUTE NEUT (AUTO) 2.7 10^3/uL (1.7-8.2); BASOPHILS % (AUTO) 0.5 % (0-2); EOSINOPHILS % (AUTO) 0.8 % (0-6); HEMATOCRIT 31.8 % (36.0-47.0); HEMOGLOBIN 10.2 g/dL (12.0-15.5); LYMPHOCYTES % (AUTO) 31.3 % (13-45); MEAN CORPUSCULAR HEMOGLOBIN 25.8 pg (27.0-33.4); MEAN CORPUSCULAR HGB CONC 32.1 g/dL (32.0-36.0); MEAN CORPUSCULAR VOLUME 81 fl (80-97); MONOCYTES % (AUTO) 14.3 % (3-13); PLATELET COUNT 235 10^3/uL (150-450); RED BLOOD COUNT 3.94 10^6/uL (3.72-5.28); RED CELL DISTRIBUTION WIDTH 15.1 % (11.5-14.0); SEGMENTED NEUTROPHILS % (AUTO) 53.1 % (42-78); TOTAL CELLS COUNTED % (AUTO) 100 %; WHITE BLOOD COUNT 5.1 10^3/uL (4.0-10.5)
[2020-02-05 17:33] LABS: ALKALINE PHOSPHATASE 106 U/L (38-126); ANION GAP 10 (5-19); ASPARTATE AMINO TRANSFERASE 29 U/L (14-36); BILIRUBIN,DIRECT 0.3 mg/dL (0.0-0.4); BILIRUBIN,TOTAL 0.4 mg/dL (0.2-1.3); BLOOD UREA NITROGEN 5 mg/dL (7-20); CALCIUM 9.4 mg/dL (8.4-10.2); CARBON DIOXIDE 26 mmol/L (22-30); CHLORIDE 101 mmol/L (98-107); CREATINE KINASE 118 U/L (30-135); GLUCOSE 87 mg/dL (75-110); POTASSIUM 3.7 mmol/L (3.6-5.0); TOTAL PROTEIN 7.7 g/dL (6.3-8.2)
--- NOTE | 2020-02-05 18:25 | ER Document Report ---
ED Seizure - General Chief Complaint: Seizure Stated Complaint: SEIZURES Time Seen by Provider: 02/05/20 15:49 - Related Data Allergies/Adverse Reactions: No Known Allergies Allergy (Verified 01/04/20 11:39) Past Medical History - Social History Smoking Status: Current Every Day Smoker Chew tobacco use (# tins/day): No Frequency of alcohol use: None Drug Abuse: None Family History: Reviewed & Not Pertinent Patient has homicidal ideation: No Neurological Medical History: Reports: Hx Seizures Renal/ Medical History: Denies: Hx Peritoneal Dialysis Psychiatric Medical History: Reports: Hx Attention Deficit Hyperactivity Disorder, Hx Bipolar Disorder, Hx Depression - Immunizations Immunizations up to date: Yes Hx Diphtheria, Pertussis, Tetanus Vaccination: Yes Physical Exam - Vital signs Vitals: Pulse Ox 100 02/05/20 16:07 Course - Vital Signs Vital signs: Temp Pulse Resp BP Pulse Ox 97.8 F 16 134/98 H 100 02/05/20 17:01 02/05/20 17:01 02/05/20 17:01 02/05/20 17:01 - Laboratory Result Diagrams: 02/05/20 16:56 02/05/20 16:56 Laboratory results interpreted by me: 02/05/20 02/05/20 16:56 16:56 Hgb 10.2 L Hct 31.8 L MCH 25.8 L RDW 15.1 H [place] % (Auto) 14.3 H BUN 5 L - EKG Interpretation by Mn EKG shows normal: Sinus rhythm Rate: Normal Rhythm: Arrthymia When compared to previous EKG there are: No significant change Additional EKG results interpreted by me: 02/05/20 18:23 Sinus arrhythmia at a rate of 62. QTc 415. No acute ST changes.
[2020-02-05] MEDS ORDERED: LEVETIRACETAM 1000 MG/NACL-ISO 1,000 MG/100 ML RTUPB IV ONE (18:52)
--- NOTE | 2020-02-05 18:59 | ER Document Report ---
ED Seizure - General Chief Complaint: Seizure Stated Complaint: SEIZURES Time Seen by Provider: 02/05/20 15:49 Primary Care Provider: JOSE FRANCISCO BUSTILLO MD [EMERITUS] - Follow up as needed - HPI Patient complains to provider of: History of seizures Notes: Patient is a 24-year-old female with a past medical history of seizures, bipolar, ADHD who presents with seizure activity. Patient states that she was at work today and began to have shaking. She states that she began to have a headache and felt like she was short of breath. This is usually how her seizure activity presents. She was not unconscious. She did not fall or hit her head. Patient did not bite her tongue or lose control of her bladder. She states that episode lasted for about an hour. Her work sent her to the ED because of her history of seizures. Patient states that this is exactly how her seizures normally present. She saw a neurologist 3 years ago and was on a medicine but does not remember the name. Patient states she has not taken the medicine in a long time because she lost Medicaid and has been unable to get it back. She states she does have an appointment with a neurologist in [place] in February. Is denying any fevers, chills, urinary symptoms, abdominal pain, nausea or vomi ting. - Related Data Allergies/Adverse Reactions: No Known Allergies Allergy (Verified 01/04/20 11:39) Past Medical History - General Information source: Patient - Social History Smoking Status: Current Every Day Smoker Chew tobacco use (# tins/day): No Frequency of alcohol use: None Drug Abuse: None Family History: Reviewed & Not Pertinent Patient has homicidal ideation: No Neurological Medical History: Reports: Hx Seizures Renal/ Medical History: Denies: Hx Peritoneal Dialysis Psychiatric Medical History: Reports: Hx Attention Deficit Hyperactivity Disorder, Hx Bipolar Disorder, Hx Depression - Immunizations Immunizations up to date: Yes Hx Diphtheria, Pertussis, Tetanus Vaccination: Yes Review of Systems - Review of Systems Notes: CONSTITUTIONAL: No fever, fatigue or weight loss. SKIN: No rash. HENT: No congestion, ear pain, or sore throat. EYES: No recent vision problems or eye pain. CARDIOVASCULAR: No chest pain or edema. RESPIRATORY: Positive for chest tightness and shortness of breath. GASTROINTESTINAL: No abdominal pain, nausea, vomiting, bloody stools or diarrhea. GENITOURINARY: No dysuria. MUSCULOSKELETAL: No joint pain or swelling. NEUROLOGIC: Positive for headache and seizure-like activity. HEMATOLOGIC: No unusual bruising or bleeding. PSYCHIATRIC: No depression or anxiety. Physical Exam - Vital signs Vitals: Pulse Ox 100 02/05/20 16:07 - General General appearance: Appears well Notes: VITAL SIGNS: Within normal limits. GENERAL: No acute distress, non-toxic appearance. HEAD: Normal with no signs of head trauma. EYES: EOMI, conjunctiva normal, no discharge. EARS: Hearing grossly intact. NOSE: Normal. NECK: Normal range of motion, no tenderness, supple, no lymphadenopathy, No adenopathy, no JVD. CHEST: Clear breath sounds bilaterally. No wheezes, rales, or rhonchi. CARDIAC: Regular rate and rhythm. S1 and S2, without murmurs, gallops, or rubs. VASCULAR: No Edema. ABDOMEN: Normal and soft with no tenderness, no masses or pulsatile masses. GENITOURINARY: Normal, No tenderness MUSCULOSKELETAL: Good range of motion of all major joints. Extremities without clubbing, cyanosis or edema. NEUROLOGICAL: Alert and oriented x 3. No focal sensory or strength deficits. Speech normal. Follows commands appropriately. Responds to questions appropriately. PSYCHIATRIC: Normal Affect, judgement and mood. SKIN: Normal appearance with no rashes or lesions. Course - Re-evaluation Re-evalutation: 02/05/20 18:58 Patient is awake and alert and in no acute distress. She is watching TV. Patient does not member what medication she is supposed to be on, but from a chart review, she normally gets Keppra. I informed her that she does need to follow-up with her neurologist and she has an appointment in February. We will observe the patient after giving her Keppra. Likely plan will be for discharge. Her lab work was reviewed and is similar to previous. Patient is eating in the room. She states she feels at baseline. I will write the patient for a prescription for Keppra until she can see her neurologist. She was given strict return precautions. 02/06/20 00:34 - Vital Signs Vital signs: Temp Pulse Resp BP Pulse Ox 98.0 F 76 23 H 135/76 H 100 02/05/20 23:32 02/05/20 23:32 02/05/20 22:01 02/05/20 23:02 02/05/20 23:02 - Laboratory Result Diagrams: 02/05/20 16:56 02/05/20 16:56 Laboratory results interpreted by me: 02/05/20 02/05/20 02/05/20 16:56 16:56 22:34 Hgb 10.2 L Hct 31.8 L MCH 25.8 L RDW 15.1 H [place] % (Auto) 14.3 H BUN 5 L Urine Protein 30 H Urine Urobilinogen 4.0 H Ur Leukocyte Esterase SMALL H - Diagnostic Test Radiology reviewed: Image reviewed, Reports reviewed - EKG Interpretation by Me EKG shows normal: Sinus rhythm Rate: Normal Rhythm: Arrthymia When compared to previous EKG there are: Previous EKG unavailable Additional EKG results interpreted by me: 02/05/20 23:12 Sinus arrhythmia at a rate of 62. QTc 415. No acute ST changes. Discharge - Discharge Clinical Impression: Seizure-like activity Condition: Stable Disposition: HOME, SELF-CARE Instructions: Seizure, Known Epileptic ([facility]) Additional Instructions: I have refilled your Keppra prescription. Please pick it up from the pharmacy. Please follow-up with your neurologist. Return to the ER for any return of symptoms Prescriptions: Levetiracetam [Keppra 500 mg Tablet] 500 mg PO Q12 30 Days #60 tablet Forms: Return to Work Referrals: JOSE FRANCISCO BUSTILLO MD [EMERITUS] - Follow up as needed
[2020-02-05 23:01] LABS: APPEARANCE,URINE CLEAR; BILIRUBIN,URINE NEGATIVE (NEGATIVE); COLOR,URINE YELLOW; GLUCOSE, URINE NEGATIVE (NEGATIVE); KETONES,URINE NEGATIVE (NEGATIVE); LEUKOCYTE ESTERASE,URINE SMALL (NEGATIVE); NITRITE,URINE NEGATIVE (NEGATIVE); PROTEIN,URINE 30 mg/dL (NEGATIVE); URINE SPECIFIC GRAVITY 1.023
[2020-02-05 23:06] VITALS: BP 135/76
--- NOTE | 2020-02-06 16:34 | EKG REPORT ---
SEVERITY:- OTHERWISE NORMAL ECG - SINUS ARRHYTHMIA, RATE 50-75 : Confirmed by: Helena Cadena 06-Feb-2020 16:33:43
== END 2020-02-05 23:33 | disposition home or self-care (01) ==
LOC: ER 15:21
DX: R56.9 Unspecified convulsions (principal); F90.9 Attention-deficit hyperactivity disorder, unspecified type; F31.9 Bipolar disorder, unspecified; F17.200 Nicotine dependence, unspecified, uncomplicated
CPT/HCPCS: 93005; 99285; 96365; 36415; 87086; 82550; 83690; 83735; 85025; 81025; 87088; 80053; 81001; 84484; 87186; 71045; 93010; J1953

== ENCOUNTER 2020-03-09 10:18 | Emergency (ER) | payer SELFPAY ==
--- NOTE | 2020-03-09 10:52 | ER Document Report ---
ED Medical Screen (RME) - General Chief Complaint: Leg Pain Stated Complaint: LEG PAIN,DIZZINESS/POST SEIZURE Time Seen by Provider: 03/09/20 10:43 Mode of Arrival: Wheelchair Information source: Patient Notes: 23-year-old female with history of epilepsy presenting to the emergency department chief complaint of generalized malaise, dizziness and lower extremity pain after having a seizure this morning. She reports the pain is so bad in her legs that she cannot ambulate. Patient reports she does not take any medications for her seizures. Upon review of her medication record she is supp osed to be taking Keppra. Patient reports not taking this because she does not have Medicaid anymore. Patient reports her last seizure was last week. She does not have a primary care provider. Patient is alert, oriented, answering all questions appropriately. No focal neurological deficits noted on initial exam. I have greeted and performed a rapid initial assessment of this patient. A comp rehensive ED assessment and evaluation of the patient, analysis of test results and completion of the medical decision making process will be conducted by additional ED providers. I have specifically instructed the patient or family members with the patient to immediately return to any nursing staff should anything change in the patient's condition or with their chief complaint. TRAVEL OUTSIDE OF THE [place] IN LAST 30 DAYS: No - Related Data Allergies/Adverse Reactions: No Known Allergies Allergy (Verified 03/09/20 10:45) Past Medical History Neurological Medical History: Reports: Hx Seizures Renal/ Medical History: Denies: Hx Peritoneal Dialysis Psychiatric Medical History: Reports: Hx Attention Deficit Hyperactivity Disorder, Hx Bipolar Disorder, Hx Depression - Immunizations Immunizations up to date: Yes Hx Diphtheria, Pertussis, Tetanus Vaccination: Yes Physical Exam - Vital signs Vitals: Temp Pulse Resp BP Pulse Ox 98.2 F 63 20 137/73 H 100 03/09/20 10:27 03/09/20 10:27 03/09/20 10:27 03/09/20 10:27 03/09/20 10:27 Course - Vital Signs Vital signs: Temp Pulse Resp BP Pulse Ox 98.2 F 63 20 137/73 H 100 03/09/20 10:27 03/09/20 10:27 03/09/20 10:27 03/09/20 10:27 03/09/20 10:27
[2020-03-09 11:50] LABS: ABSOLUTE LYMPHOCYTES (AUTO) 1.5 10^3/uL (0.5-4.7); ABSOLUTE MONOCYTES (AUTO) 0.5 10^3/uL (0.1-1.4); ABSOLUTE NEUT (AUTO) 2.7 10^3/uL (1.7-8.2); BASOPHILS % (AUTO) 0.5 % (0-2); EOSINOPHILS % (AUTO) 0.7 % (0-6); HEMATOCRIT 32.2 % (36.0-47.0); HEMOGLOBIN 10.1 g/dL (12.0-15.5); LYMPHOCYTES % (AUTO) 31.5 % (13-45); MEAN CORPUSCULAR HEMOGLOBIN 25.6 pg (27.0-33.4); MEAN CORPUSCULAR HGB CONC 31.4 g/dL (32.0-36.0); MEAN CORPUSCULAR VOLUME 82 fl (80-97); MONOCYTES % (AUTO) 10.1 % (3-13); PLATELET COUNT 267 10^3/uL (150-450); RED BLOOD COUNT 3.95 10^6/uL (3.72-5.28); RED CELL DISTRIBUTION WIDTH 14.7 % (11.5-14.0); SEGMENTED NEUTROPHILS % (AUTO) 57.2 % (42-78); TOTAL CELLS COUNTED % (AUTO) 100 %; WHITE BLOOD COUNT 4.8 10^3/uL (4.0-10.5)
[2020-03-09 11:51] LABS: APPEARANCE,URINE SLIGHTLY-CLOUDY; BILIRUBIN,URINE NEGATIVE (NEGATIVE); COLOR,URINE YELLOW; GLUCOSE, URINE NEGATIVE (NEGATIVE); KETONES,URINE NEGATIVE (NEGATIVE); LEUKOCYTE ESTERASE,URINE TRACE (NEGATIVE); NITRITE,URINE NEGATIVE (NEGATIVE); PROTEIN,URINE 30 mg/dL (NEGATIVE); URINE SPECIFIC GRAVITY 1.024
[2020-03-09 12:02] LABS: ALBUMIN 3.9 g/dL (3.5-5.0); ALKALINE PHOSPHATASE 92 U/L (38-126); ANION GAP 10 (5-19); ASPARTATE AMINO TRANSFERASE 31 U/L (14-36); BILIRUBIN,DIRECT 0.1 mg/dL (0.0-0.4); BILIRUBIN,TOTAL 0.4 mg/dL (0.2-1.3); BLOOD UREA NITROGEN 5 mg/dL (7-20); CALCIUM 9.5 mg/dL (8.4-10.2); CARBON DIOXIDE 25 mmol/L (22-30); CHLORIDE 104 mmol/L (98-107); GLUCOSE 92 mg/dL (75-110); POTASSIUM 4.3 mmol/L (3.6-5.0); TOTAL PROTEIN 7.4 g/dL (6.3-8.2)
[2020-03-09 12:09] LABS: ALCOHOL < 10 mg/dL (NONE DETECTED)
[2020-03-09 12:11] LABS: URINE AMPHETAMINES SCREEN NEGATIVE; URINE BARBITURATES SCREEN NEGATIVE; URINE BENZODIAZEPINES SCREEN NEGATIVE; URINE COCAINE SCREEN NEGATIVE; URINE METHADONE SCREEN NEGATIVE; URINE PHENCYCLIDINE SCREEN NEGATIVE
[2020-03-09 12:14] LABS: URINE MARIJUANA (THC) SCREEN UNCONFIRMED POSITIVE
[2020-03-09] MEDS ORDERED: LEVETIRACETAM 1000 MG/NACL-ISO 1,000 MG/100 ML RTUPB IV ONE (12:43)
[2020-03-09] MEDS ORDERED: ACETAMINOPHEN 325 MG TABLET PO ONE (13:32)
--- NOTE | 2020-03-09 13:41 | ER Document Report ---
ED General - General Chief Complaint: Probable Seizure Stated Complaint: LEG PAIN,DIZZINESS/POST SEIZURE Time Seen by Provider: 03/09/20 10:43 Mode of Arrival: Wheelchair TRAVEL OUTSIDE OF THE [place] IN LAST 30 DAYS: No - HPI Notes: Chief complaint: Seizure History of present illness: 24-year-old female with history of idiopathic epilepsy since age 19 seen today for breakthrough seizure associated with noncompliance with her prescribed Keppra. Patient was seen here 1 month ago under identical circumstances. She was given a prescription for Keppra 500 mg twice daily for 30 days and took the last of this within the last 48 hours. She had a brief generalized seizure before getting out of bed this morning. There was no fall or injury. She complains now of some dull headache and some soreness of both eyes. She is not vomiting. She is not running a fever. She has no other specific complaints at this time. 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 She does not currently have Medicaid and so she has no ability to pay for medication. She has an appointment scheduled with a neurologist in [facility] within the next 2 weeks. Denies use of alcohol. She occasionally smokes cannabis. She denies any other drug use. - Related Data Allergies/Adverse Reactions: No Known Allergies Allergy (Verified 03/09/20 10:45) Past Medical History - General Information source: Patient - Social History Smoking Status: Current Every Day Smoker Chew tobacco use (# tins/day): No Frequency of alcohol use: None Drug Abuse: None Family History: Reviewed & Not Pertinent Neurological Medical History: Reports: Hx Seizures Renal/ Medical History: Denies: Hx Peritoneal Dialysis Psychiatric Medical History: Reports: Hx Attention Deficit Hyperactivity Disorder, Hx Bipolar Disorder, Hx Depression - Immunizations Immunizations up to date: Yes Hx Diphtheria, Pertussis, Tetanus Vaccination: Yes Review of Systems - Review of Systems Notes: Constitutional: Negative for fever. HENT: Negative for sore throat. Eyes: Negative for visual changes. Cardiovascular: Negative for chest pain. Respiratory: Negative for shortness of breath. Gastrointestinal: Negative for abdominal pain, vomiting or diarrhea. Genitourinary: Negative for dysuria. Musculoskeletal: Negative for back pain. Skin: Negative for rash. Neurological: As per HPI. 10 point ROS negative except as marked above and in HPI. Physical Exam - Vital signs Vitals: Temp Pulse Resp BP Pulse Ox 98.2 F 63 20 137/73 H 100 03/09/20 10:27 03/09/20 10:27 03/09/20 10:27 03/09/20 10:27 03/09/20 10:27 - Notes Notes: GENERAL: Mildly obese female of approximately stated age appearing in no acute distress. SKIN: Good turgor no rashes. HEAD: Normocephalic atraumatic. EYES: PERRLA. EOMI. Conjunctivae and sclerae clear. EARS: CANALS AND TMS CLEAR. NOSE: CLEAR. MOUTH: Moist mucosa. Good dentition. No stridor or edema. No drooling. NECK: Supple. No masses or thyromegaly. No adenopathy. Carotids 2+ without bruits. No JVD. BACK: Symmetrical without tenderness. CHEST: Respirations unlabored. Breath sounds clear and symmetrical. HEART: Regular rhythm. No murmur gallop or rub. ABDOMEN: Soft nontender without masses, organomegaly or rebound. Bowel sounds normally active. No bruits. GENITALIA: Deferred. EXTREMITIES: No edema. No calf tenderness. Cap refill less than 1.5 seconds. Dorsalis pedis and posterior tibial pulses 3+ and symmetrical. NEUROLOGICAL: GCS 15. Alert and oriented x3. Normal gait. Fluent speech. Cranial nerves II through XII intact. Sensorimotor and cerebellar normal. Normal tone. PSYCHIATRIC: Appropriate affect. Course - Re-evaluation Re-evalutation: 03/09/20 13:39 I have given the patient 1 g of IV Keppra. Also given oral Tylenol. Medically stable for discharge with outpatient follow-up with neurology. I will write her a new prescription for Keppra for the next 30 days. 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 - Vital Signs Vital signs: Temp Pulse Resp BP Pulse Ox 98.2 F 63 20 137/73 H 100 03/09/20 10:27 03/09/20 10:27 03/09/20 10:27 03/09/20 10:27 03/09/20 10:27 - Laboratory Result Diagrams: 03/09/20 11:01 03/09/20 11:01 Laboratory results interpreted by me: 03/09/20 03/09/20 03/09/20 11:01 11:01 11:01 Hgb 10.1 L Hct 32.2 L MCH 25.6 L MCHC 31.4 L RDW 14.7 H BUN 5 L Creatinine 0.50 L Urine Protein 30 H Urine Urobilinogen 2.0 H Ur Leukocyte Esterase TRACE H Discharge - Discharge Clinical Impression: Seizure, Noncompliance Disposition: HOME, SELF-CARE Additional Instructions: Seizure, Known Epileptic You have had a seizure. Seizures may "break through" in an epileptic due to stress of infection or injury, a change in blood chemistry, or drug and alcohol use. Another common cause is failure to take medication as prescribed. Your doctor has evaluated your situation for the likely cause of this seizu re. It is important that you follow his advice concerning any medication changes and follow-up care. Further testing of anti-seizure medication levels in your blood may be necessary. If you have a [place] driver's license, it's important that you DO NOT DRIVE until given permission by your physician. This seizure must be reported to the [place] driver's license bureau. Call the doctor or return if seizures recur, or if new or unusual symptoms arise -- such as severe headache, confusion, excessive sleepiness, local weakness or numbness, neck stiffness, or fever. Take prescribed medication as directed. Return here as needed for new or worsening symptoms: Pain that is worsening or unimproved Uncontrolled vomiting High fever or shaking chills Overall worsening Prescriptions: Levetiracetam [Keppra 500 mg Tablet] 500 mg PO Q12 #60 tablet Forms: Smoking Cessation Education Referrals: [facility] [Provider Group] - Follow up as needed
[2020-03-09 14:02] VITALS: BP 131/68
== END 2020-03-09 14:01 | disposition home or self-care (01) ==
LOC: ER 10:18
DX: G40.909 Epilepsy, unspecified, not intractable, without status epilepticus (principal); H57.13 Ocular pain, bilateral; Z91.14 Patient's other noncompliance with medication regimen; Z79.899 Other long term (current) drug therapy; F17.200 Nicotine dependence, unspecified, uncomplicated
CPT/HCPCS: 99284; 96365; 36415; 82962; 80307 ×2; 83735; 84703; 85025; 80053; 81001; J1953